=== PATIENT | male | born 1960 | race African-American/Black ===

== ENCOUNTER 2017-04-21 07:47 | Inpatient (IN) | payer SELFPAY ==
[~2017-04-21] VITALS: Ht 177.8 cm; Wt 83.0 kg
[~2017-04-21 07:47] MED LIST: AMIO200T2 PO; ASPI-482 PO; ATOR10TA PO; FURO-68 PO; ISOS60TA2 PO; LISI-338 PO; METO50TA6 PO
[2017-04-21] MEDS ORDERED: IPRATRPIUM/ALBUTEROL 0.5/2.5MG 3 ML NEBU. NEB ONE (08:15)
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
--- NOTE | 2017-04-21 08:36 | EKG ---
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
[2017-04-21 08:48] LABS: BASO # 0.1 x10^3/uL (0.0-0.2); BASO % 1 % (0-3); EOS % 2 % (0-3); HEMATOCRIT 40.4 % (39.0-53.0); HEMOGLOBIN 13.4 g/dL (13.0-17.5); LYMPH # 1.5 x10^3/uL (1.0-4.8); LYMPH % 33 % (24-48); MEAN CORPUSCULAR HEMOGLOBIN 27 pg (25-35); MEAN CORPUSCULAR HGB CONC 33 g/dL (31-37); MEAN CORPUSCULAR VOLUME 82 fL (79-100); MONO % 6 % (0-9); NEUT % 58 % (31-73); PLATELET COUNT 162 x10^3/uL (140-400); RED BLOOD COUNT 4.91 x10^6/uL (4.30-5.70); RED CELL DISTRIBUTION WIDTH 16.2 % (11.5-14.5); WHITE BLOOD COUNT 4.7 x10^3/uL (4.0-11.0)
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
[2017-04-21 09:01] LABS: BASE EXCESS COOX -5 mmol/L (-3-3); CARBON MONOXIDE 0.5 % (0.0-1.9); HCO3 COOX 18 mmol/L (21-28); METHEMOGLOBIN 0.4 % (0.0-1.9); OXYHEMOGLOBIN 92.7 %; PCO2 COOX 28 mmHg (35-46); PH COOX 7.43 (7.35-7.45); PO2 COOX 69 mmHg (65-108); SAT O2 COOX 94 % (92-99); TOTAL HEMOGLOBIN 13.5 g/dL
[2017-04-21 09:02] LABS: CALCIUM 8.6 mg/dL (8.5-10.1); CREATININE 1.8 mg/dL (0.7-1.3); POTASSIUM 4.8 mmol/L (3.5-5.1)
[2017-04-21 09:09] LABS: ALBUMIN 3.3 g/dL (3.4-5.0); ALBUMIN/GLOBULIN RATIO 0.8 (1.0-1.7); TOTAL BILIRUBIN 1.3 mg/dL (0.2-1.0); TOTAL PROTEIN 7.4 g/dL (6.4-8.2)
[2017-04-21 09:10] LABS: INR 1.3 (0.8-1.1); PROTHROMBIN TIME PATIENT 15.6 SEC (11.7-14.0)
[2017-04-21 09:11] LABS: FIO2 COOX 21
[2017-04-21 09:18] LABS: CKMB MASS 1.4 ng/mL (0.0-3.6)
[2017-04-21] MEDS ORDERED: FUROSEMIDE 40 MG/4 ML VIAL. IVP ONE (09:45)
[2017-04-21] MEDS ORDERED: ACETAMINOPHEN 325 MG TABLET. PO PRN (10:15)
[2017-04-21] MEDS ORDERED: ONDANSETRON PF 4 MG/2 ML VIAL. IV PRN ×2 (10:15→12:45)
[2017-04-21 11:12] LABS: BARBITURATES NEG (NEG); BENZODIAZEPINES NEG (NEG); CANNABINOIDS NEG (NEG); COCAINE NEG (NEG); METHADONE NEG (NEG); OPIATES NEG (NEG); PHENCYCLIDINE NEG (NEG)
[2017-04-21 11:15] LABS: BILIRUBIN,URINE NEGATIVE (NEG); GLUCOSE,URINE NEGATIVE (NEG); NITRITE,URINE NEGATIVE (NEG); PH,URINE 5.5; PROTEIN,URINE NEGATIVE (NEG-TRACE); UROBILINOGEN,URINE 0.2 mg/dL (0.2 mg/dL)
[2017-04-21 11:30] VITALS: BP 145/107
[2017-04-21 11:39] LABS: BACTERIA,URINE 0 /HPF (0-FEW); RBC,URINE 0 /HPF (0-2); SQUAMOUS EPITHELIAL CELL,UR FEW /LPF
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
--- NOTE | 2017-04-21 12:42 | PDOC1 ---
History and Physical Date of Admission Date of Admission DATE: 04/21/17 TIME: 12:35 Identification/Chief Complaint Chief Complaint soa, leg edema Problems: Source Source: Caregiver, Chart review, Patient History of Present Illness History of Present Illness 57 y.o AA male who is know to me when i dcd him for the ff: Date of Admission: Mar 22, 2017 Date of Discharge: Mar 29, 2017 Admitting Diagnosis Comment: 1. CVA: multiple subacute infarcts per MRI. neurology following 2. Acute on chronic systolic heart failure: LVEF 10-15%, appears better compensated. Continue current medical regimen 3. CAD/NSTEMI: Remains CP free, [facility] with 3VD CAD with LM involvement. CT surgery deemed patient a poor surgical candidate. Plan for high risk PCI/stent placement to left main coronary artery on Tuesday possibly with hemodynamic support from Impella percutaneous ventricular assist device. Telemetry showed few brief episodes of wide compensated tachycardia most probably atrial fibrillation with aberrancy. Continue amiodarone. 4. HTN: better controlled 5. COPD/severe pulmonary HTN/tobaccoism: Pulmonary team following 6. CKD3 NOw back bec of SOA, leg edema, marked, claims compliance with his meds and I do believe him as I inspected his used bottles, BNP 31K, CXR shows congestion, Leg visibly pitting edema, Got lasix 40 at ER with good UO. No CP, LAbs creat 1.8 Past Medical History Cardiovascular: CAD, CHF, HTN Pulmonary: Bronchitis, COPD Renal/: Chronic renal insuff Past Surgical History Past Surgical History: Other Family History Family History: Coronary Artery Disease, Stroke Social History Smoke: No ALCOHOL: none Drugs: Marijuana Current Problem List Problem List Problems Medical Problems: (1) CHF (congestive heart failure) Status: Acute (2) Elevated troponin Status: Acute Problems: Current Medications Current Medications Current Medications Albuterol/ Ipratropium (Duoneb) 3 ml 1X ONCE NEB Last administered on 08:56; Start 04/21/17 at 08:15; Stop 04/21/17 at 08:16; Status DC Furosemide (Lasix) 40 mg 1X ONCE IVP Last administered on 04/21/17 09:49; Start 04/21/17 at 09:45; Stop 04/21/17 at 09:46; Status DC Ondansetron HCl (Zofran) 4 mg PRN Q8HRS PRN IV NAUSEA/VOMITING; Start 04/21/17 at 10:15; Stop 04/22/17 at 10:14 Acetaminophen (Tylenol) 650 mg PRN Q4HRS PRN PO FEVER; Start 04/21/17 at 10:15 ; Stop 04/22/17 at 10:14 Furosemide (Lasix) 40 mg DAILY IVP ; Start 04/22/17 at 09:00 Active Scripts Active Metoprolol Tartrate 50 Mg Tablet 1 Tab PO BID Aspir 81 (Aspirin) 81 Mg Tablet.dr 1 Tab PO DAILY Lisinopril 5 Mg Tablet 1 Tab PO DAILY Amiodarone Hcl 200 Mg Tablet 1 Tab PO BID Lipitor (Atorvastatin Calcium) 10 Mg Tablet 1 Tab PO QHS Isosorbide Mononitrate Er (Isosorbide Mononitrate) 60 Mg Tab.er.24h 1 Tab PO DAILY Lasix (Furosemide) 40 Mg Tablet 1 Tab PO DAILY Allergies Allergies: Coded Allergies: codeine (Verified Allergy, Intermediate, 04/21/17) ROS Review of System leg edema, SOA, all else is neg, denies orthopnea or pND Physical Exam General: Alert, Oriented X3, Cooperative, No acute distress HEENT: Atraumatic, PERRLA Lungs: Normal air movement, Other (dec BS bases, no wheezes) Cardiovascular: S1, S2 Abdomen: Normal bowel sounds, Soft, No tenderness, No hepatosplenomegaly, No masses Male Genitals Exam: normal genitalia, normal prostate Rectal Exam: not examined PELVIC: Nml ext genitalia Extremities: Other (plus 2 pitting edema) Skin: No rashes, No breakdown, No significant lesion Neuro: Normal gait, Normal speech, Strength at 5/5 X4 ext, Normal tone, Sensation intact, Cranial nerves 3-12 NL, Reflexes 2+ Vitals Vitals Vital Signs Date Time Temp Pulse Resp B/P (MAP) Pulse Ox O2 Delivery O2 Flow Rate FiO2 04/21/17 11:54 Room Air 04/21/17 11:30 97.5 70 19 145/107 (120) 100 97.5 Labs Labs Laboratory Tests Test 04/21/17 08:09 04/21/17 08:30 04/21/17 10:50 04/21/17 11:15 O2 Saturation 94 % (92-99) Arterial Blood pH 7.43 (7.35-7.45) Arterial Blood pCO2 at Patient Temp 28 mmHg (35-46) Arterial Blood pO2 at Patient Temp 69 mmHg (65-108) Arterial Blood HCO3 18 mmol/L (21-28) Arterial Blood Base Excess -5 mmol/L (-3-3) Oxyhemoglobin 92.7 % Methemoglobin 0.4 % (0.0-1.9) Carbon Monoxide, Quantitative 0.5 % (0.0-1.9) FiO2 21 White Blood Count 4.7 x10^3/uL (4.0-11.0) Red Blood Count 4.91 x10^6/uL (4.30-5.70) Hemoglobin 13.4 g/dL (13.0-17.5) Hematocrit 40.4 % (39.0-53.0) Mean Corpuscular Volume 82 fL (79-100) Mean Corpuscular Hemoglobin 27 pg (25-35) Mean Corpuscular Hemoglobin Concent 33 g/dL (31-37) Red Cell Distribution Width 16.2 % (11.5-14.5) Platelet Count 162 x10^3/uL (140-400) Neutrophils (%) (Auto) 58 % (31-73) Lymphocytes (%) (Auto) 33 % (24-48) Monocytes (%) (Auto) 6 % (0-9) Eosinophils (%) (Auto) 2 % (0-3) Basophils (%) (Auto) 1 % (0-3) Neutrophils # (Auto) 2.7 x10^3uL (1.8-7.7) Lymphocytes # (Auto) 1.5 x10^3/uL (1.0-4.8) Monocytes # (Auto) 0.3 x10^3/uL (0.0-1.1) Eosinophils # (Auto) 0.1 x10^3/uL (0.0-0.7) Basophils # (Auto) 0.1 x10^3/uL (0.0-0.2) Prothrombin Time 15.6 SEC (11.7-14.0) Prothromb Time International Ratio 1.3 (0.8-1.1) D-Dimer (Myla) 4.80 ug/mlFEU (0.00-0.50) Sodium Level 142 mmol/L (136-145) Potassium Level 4.8 mmol/L (3.5-5.1) Chloride Level 108 mmol/L (98-107) Carbon Dioxide Level 23 mmol/L (21-32) Anion Gap 11 (6-14) Blood Urea Nitrogen 32 mg/dL (8-26) Creatinine 1.8 mg/dL (0.7-1.3) Estimated GFR (Cockcroft-Gault) 47.0 BUN/Creatinine Ratio 18 (6-20) Glucose Level 100 mg/dL (70-99) Lactic Acid Level 2.9 mmol/L (0.4-2.0) Calcium Level 8.6 mg/dL (8.5-10.1) Magnesium Level 2.0 mg/dL (1.8-2.4) Total Bilirubin 1.3 mg/dL (0.2-1.0) Aspartate Amino Transf (AST/SGOT) 50 U/L (15-37) Alanine Aminotransferase (ALT/SGPT) 93 U/L (16-63) Alkaline Phosphatase 117 U/L (46-116) Creatine Kinase 93 U/L (39-308) Creatine Kinase MB (Mass) 1.4 ng/mL (0.0-3.6) Creatine Kinase MB Relative Index 1.5 % (0-4) Troponin I Quantitative 0.164 ng/mL (0.000-0.055) 0.157 ng/mL (0.000-0.055) AX-Jkd-A-Type Natriuretic Peptide 52919 pg/mL (0-124) Total Protein 7.4 g/dL (6.4-8.2) Albumin 3.3 g/dL (3.4-5.0) Albumin/Globulin Ratio 0.8 (1.0-1.7) Lipase 203 U/L (73-393) Thyroid Stimulating Hormone (TSH) 7.283 uIU/mL (0.358-3.74) Ethyl Alcohol Level < 10 mg/dL (0-10) Urine Collection Type Unknown Urine Color Yellow Urine Clarity Clear Urine pH 5.5 Urine Specific [place] 1.010 Urine Protein Negative mg/dL (NEG-TRACE) Urine Glucose (UA) Negative mg/dL (NEG) Urine Ketones (Stick) Negative mg/dL (NEG) Urine Blood Negative (NEG) Urine Nitrite Negative (NEG) Urine Bilirubin Negative (NEG) Urine Urobilinogen Dipstick 0.2 mg/dL (0.2 mg/dL) Urine Leukocyte Esterase Negative (NEG) Urine RBC 0 /HPF (0-2) Urine WBC 1-4 /HPF (0-4) Urine Squamous Epithelial Cells Few /LPF Urine Bacteria 0 /HPF (0-FEW) Urine Hyaline Casts Occasional /HPF Urine Opiates Screen Neg (NEG) Urine Methadone Screen Neg (NEG) Urine Barbiturates Neg (NEG) Urine Phencyclidine Screen Neg (NEG) Urine Amphetamine/Methamphetamine Neg (NEG) Urine Benzodiazepines Screen Neg (NEG) Urine Cocaine Screen Neg (NEG) Urine Cannabinoids Screen Neg (NEG) Urine Ethyl Alcohol Neg (NEG) Laboratory Tests Test 04/21/17 08:09 04/21/17 08:30 04/21/17 10:50 04/21/17 11:15 O2 Saturation 94 % (92-99) Arterial Blood pH 7.43 (7.35-7.45) Arterial Blood pCO2 at Patient Temp 28 mmHg (35-46) Arterial Blood pO2 at Patient Temp 69 mmHg (65-108) Arterial Blood HCO3 18 mmol/L (21-28) Arterial Blood Base Excess -5 mmol/L (-3-3) Oxyhemoglobin 92.7 % Methemoglobin 0.4 % (0.0-1.9) Carbon Monoxide, Quantitative 0.5 % (0.0-1.9) FiO2 21 White Blood Count 4.7 x10^3/uL (4.0-11.0) Red Blood Count 4.91 x10^6/uL (4.30-5.70) Hemoglobin 13.4 g/dL (13.0-17.5) Hematocrit 40.4 % (39.0-53.0) Mean Corpuscular Volume 82 fL (79-100) Mean Corpuscular Hemoglobin 27 pg (25-35) Mean Corpuscular Hemoglobin Concent 33 g/dL (31-37) Red Cell Distribution Width 16.2 % (11.5-14.5) Platelet Count 162 x10^3/uL (140-400) Neutrophils (%) (Auto) 58 % (31-73) Lymphocytes (%) (Auto) 33 % (24-48) Monocytes (%) (Auto) 6 % (0-9) Eosinophils (%) (Auto) 2 % (0-3) Basophils (%) (Auto) 1 % (0-3) Neutrophils # (Auto) 2.7 x10^3uL (1.8-7.7) Lymphocytes # (Auto) 1.5 x10^3/uL (1.0-4.8) Monocytes # (Auto) 0.3 x10^3/uL (0.0-1.1) Eosinophils # (Auto) 0.1 x10^3/uL (0.0-0.7) Basophils # (Auto) 0.1 x10^3/uL (0.0-0.2) Prothrombin Time 15.6 SEC (11.7-14.0) Prothromb Time International Ratio 1.3 (0.8-1.1) D-Dimer (Myla) 4.80 ug/mlFEU (0.00-0.50) Sodium Level 142 mmol/L (136-145) Potassium Level 4.8 mmol/L (3.5-5.1) Chloride Level 108 mmol/L (98-107) Carbon Dioxide Level 23 mmol/L (21-32) Anion Gap 11 (6-14) Blood Urea Nitrogen 32 mg/dL (8-26) Creatinine 1.8 mg/dL (0.7-1.3) Estimated GFR (Cockcroft-Gault) 47.0 BUN/Creatinine Ratio 18 (6-20) Glucose Level 100 mg/dL (70-99) Lactic Acid Level 2.9 mmol/L (0.4-2.0) Calcium Level 8.6 mg/dL (8.5-10.1) Magnesium Level 2.0 mg/dL (1.8-2.4) Total Bilirubin 1.3 mg/dL (0.2-1.0) Aspartate Amino Transf (AST/SGOT) 50 U/L (15-37) Alanine Aminotransferase (ALT/SGPT) 93 U/L (16-63) Alkaline Phosphatase 117 U/L (46-116) Creatine Kinase 93 U/L (39-308) Creatine Kinase MB (Mass) 1.4 ng/mL (0.0-3.6) Creatine Kinase MB Relative Index 1.5 % (0-4) Troponin I Quantitative 0.164 ng/mL (0.000-0.055) 0.157 ng/mL (0.000-0.055) IZ-Tzf-O-Type Natriuretic Peptide 10563 pg/mL (0-124) Total Protein 7.4 g/dL (6.4-8.2) Albumin 3.3 g/dL (3.4-5.0) Albumin/Globulin Ratio 0.8 (1.0-1.7) Lipase 203 U/L (73-393) Thyroid Stimulating Hormone (TSH) 7.283 uIU/mL (0.358-3.74) Ethyl Alcohol Level < 10 mg/dL (0-10) Urine Collection Type Unknown Urine Color Yellow Urine Clarity Clear Urine pH 5.5 Urine Specific [place] 1.010 Urine Protein Negative mg/dL (NEG-TRACE) Urine Glucose (UA) Negative mg/dL (NEG) Urine Ketones (Stick) Negative mg/dL (NEG) Urine Blood Negative (NEG) Urine Nitrite Negative (NEG) Urine Bilirubin Negative (NEG) Urine Urobilinogen Dipstick 0.2 mg/dL (0.2 mg/dL) Urine Leukocyte Esterase Negative (NEG) Urine RBC 0 /HPF (0-2) Urine WBC 1-4 /HPF (0-4) Urine Squamous Epithelial Cells Few /LPF Urine Bacteria 0 /HPF (0-FEW) Urine Hyaline Casts Occasional /HPF Urine Opiates Screen Neg (NEG) Urine Methadone Screen Neg (NEG) Urine Barbiturates Neg (NEG) Urine Phencyclidine Screen Neg (NEG) Urine Amphetamine/Methamphetamine Neg (NEG) Urine Benzodiazepines Screen Neg (NEG) Urine Cocaine Screen Neg (NEG) Urine Cannabinoids Screen Neg (NEG) Urine Ethyl Alcohol Neg (NEG) VTE Prophylaxis Ordered VTE Prophylaxis Devices: Yes VTE Pharmacological Prophylaxi: Yes Assessment/Plan Assessment/Plan 1. CHF exacerbation 2. Leg edema from CHF 3. CVA: multiple subacute infarcts per MRI. neurology following 4. Acute on chronic systolic heart failure: LVEF 10-15%, in February 2017 5. CAD/NSTEMI: 6 HTN: 7. COPD/severe pulmonary HTN/tobaccoism: 8. CKD3 PLAN: Admit 2 MN Diurese Watch lytes while diuresing Resume home meds PT/OT Cards consult Claims compliance - salt intake? he could not answer me straight. INc lasix dose might need to WOF further rise creat - has CKD stage 3 Seen at BARBARA CARROLL MD Apr 21, 2017 12:42
[2017-04-21] MEDS: ISOSORBIDE MONONITRATE ER 30 MG TAB.ER.24H PO SCH (14:01)
[2017-04-21] MEDS: LISINOPRIL 5 MG TABLET. PO SCH (14:01)
[2017-04-21] MEDS: ASPIRIN ENTERIC COATED 81 MG TABLET.DR. PO SCH (14:01)
[2017-04-21 15:00] VITALS: BP 139/93
[2017-04-21 19:48] VITALS: BP 155/97
[2017-04-21] MEDS: ATORVASTATIN CALCIUM 10 MG TABLET. PO SCH (20:45)
[2017-04-21] MEDS: METOPROLOL TART IMMED RELEASE 50 MG TABLET. PO SCH (20:45)
[2017-04-21] MEDS: AMIODARONE HCL 200 MG TABLET. PO SCH (20:46)
[2017-04-21 22:39] VITALS: BP 132/98
--- NOTE | 2017-04-21 22:47 | RAD ---
INDICATION: Short of air for one day. Heart failure. Lower extremity edema. TECHNIQUE: Ventilation imaging utilized 18.0 mCi xenon-133 inhaled. Perfusion imaging utilized 6.6 mCi technetium 99m labeled MAA IV. Chest radiograph from the same day is available for comparison. This study was not marked as a stat exam, resulting in a delay in turn around. FINDINGS: There is homogeneous uptake of radiotracer on ventilation imaging with some retention on washout phase. No matched or mismatched defect on perfusion imaging is identified. IMPRESSION: 1. Low probability for pulmonary embolism. 2. Air trapping. Electronically signed by: Kobe Douglass MD (04/21/2017 10:43 PM) [facility]
[2017-04-22 03:26] VITALS: BP 131/96
[2017-04-22 05:27] LABS: BASO % 1 % (0-3); EOS % 1 % (0-3); HEMATOCRIT 37.6 % (39.0-53.0); HEMOGLOBIN 12.3 g/dL (13.0-17.5); LYMPH # 1.6 x10^3/uL (1.0-4.8); LYMPH % 35 % (24-48); MEAN CORPUSCULAR HEMOGLOBIN 27 pg (25-35); MEAN CORPUSCULAR HGB CONC 33 g/dL (31-37); MEAN CORPUSCULAR VOLUME 83 fL (79-100); MONO % 7 % (0-9); NEUT % 56 % (31-73); PLATELET COUNT 148 x10^3/uL (140-400); RED BLOOD COUNT 4.55 x10^6/uL (4.30-5.70); RED CELL DISTRIBUTION WIDTH 15.7 % (11.5-14.5); WHITE BLOOD COUNT 4.6 x10^3/uL (4.0-11.0)
[2017-04-22 05:46] LABS: CALCIUM 8.8 mg/dL (8.5-10.1); CREATININE 1.4 mg/dL (0.7-1.3); GFR 62.8
[2017-04-22 07:00] VITALS: BP 136/89
[2017-04-22] MEDS: ISOSORBIDE MONONITRATE ER 30 MG TAB.ER.24H PO SCH (08:57)
[2017-04-22] MEDS: ASPIRIN ENTERIC COATED 81 MG TABLET.DR. PO SCH (08:58)
[2017-04-22] MEDS: METOPROLOL TART IMMED RELEASE 50 MG TABLET. PO SCH ×2 (08:58→20:01)
[2017-04-22] MEDS: AMIODARONE HCL 200 MG TABLET. PO SCH ×2 (08:58→20:01)
[2017-04-22] MEDS: LISINOPRIL 5 MG TABLET. PO SCH (08:58)
[2017-04-22] MEDS: FUROSEMIDE 40 MG/4 ML VIAL. IVP SCH (08:59)
[2017-04-22 11:00] VITALS: BP 127/92
--- NOTE | 2017-04-22 11:17 | PDOC ---
PROGRESS NOTES Chief Complaint Chief Complaint Acute hypoxic respir failure ASSESSMENT AND PLAN: 1. CHF exacerbation: recent echo (02/2017) with EF 10-15%. responding to IV lasix. cont home meds 2. CAD: no CP this admit. recent cath with 3VD CAD with LM involvement. D/w cardiology: medical management for now; not a surgical candidate, stent high risk at this time. 4. HTN: better controlled 5. COPD/severe pulmonary HTN/tobaccoism: no acute issues. nebs, suppl O2 6. CKD2/3: creat improved, lytes stable. cont to monitor with ongoing IV lasix 7. CVA hx 8. Nutrition: consult for sodium low diet History of Present Illness History of Present Illness feels fine this AM. respir issues resolved Vitals Vitals Vital Signs Date Time Temp Pulse Resp B/P (MAP) Pulse Ox O2 Delivery O2 Flow Rate FiO2 04/22/17 08:58 68 136/89 04/22/17 07:00 98.4 19 100 Room Air 98.4 Physical Exam General: Alert, Oriented X3, Cooperative Heart: Regular rate, Normal S1, Normal S2, Other Lungs: Clear Abdomen: Soft, No tenderness Extremities: Other (1+ pitting edema) Skin: No breakdown, No significant lesion Labs LABS Laboratory Tests Test 04/21/17 11:15 04/21/17 12:05 04/21/17 16:07 04/21/17 21:10 Troponin I Quantitative 0.157 ng/mL (0.000-0.055) 0.172 ng/mL (0.000-0.055) 0.150 ng/mL (0.000-0.055) Lactic Acid Level 2.4 mmol/L (0.4-2.0) Test 04/22/17 03:30 White Blood Count 4.6 x10^3/uL (4.0-11.0) Red Blood Count 4.55 x10^6/uL (4.30-5.70) Hemoglobin 12.3 g/dL (13.0-17.5) Hematocrit 37.6 % (39.0-53.0) Mean Corpuscular Volume 83 fL (79-100) Mean Corpuscular Hemoglobin 27 pg (25-35) Mean Corpuscular Hemoglobin Concent 33 g/dL (31-37) Red Cell Distribution Width 15.7 % (11.5-14.5) Platelet Count 148 x10^3/uL (140-400) Neutrophils (%) (Auto) 56 % (31-73) Lymphocytes (%) (Auto) 35 % (24-48) Monocytes (%) (Auto) 7 % (0-9) Eosinophils (%) (Auto) 1 % (0-3) Basophils (%) (Auto) 1 % (0-3) Neutrophils # (Auto) 2.6 x10^3uL (1.8-7.7) Lymphocytes # (Auto) 1.6 x10^3/uL (1.0-4.8) Monocytes # (Auto) 0.3 x10^3/uL (0.0-1.1) Eosinophils # (Auto) 0.1 x10^3/uL (0.0-0.7) Basophils # (Auto) 0.0 x10^3/uL (0.0-0.2) Sodium Level 142 mmol/L (136-145) Potassium Level 4.0 mmol/L (3.5-5.1) Chloride Level 106 mmol/L (98-107) Carbon Dioxide Level 23 mmol/L (21-32) Anion Gap 13 (6-14) Blood Urea Nitrogen 30 mg/dL (8-26) Creatinine 1.4 mg/dL (0.7-1.3) Estimated GFR (Cockcroft-Gault) 62.8 Glucose Level 114 mg/dL (70-99) Calcium Level 8.8 mg/dL (8.5-10.1) JEANETTE ADAM MD Apr 22, 2017 11:17
--- NOTE | 2017-04-22 11:55 | PDOC ---
JOE GARCIA MACHINE COMPOSITOR 04/22/17 1155: CARDIO Progress Notes Date and Time Date of Service 04/22/17 Time of Evaluation 1020 Subjective Subjective: No Chest Pain, No Palpitations, Other (SOA improved but persists) Vitals Vitals Vital Signs Date Time Temp Pulse Resp B/P (MAP) Pulse Ox O2 Delivery O2 Flow Rate FiO2 04/22/17 08:58 68 136/89 04/22/17 07:00 98.4 19 100 Room Air 98.4 Weight Weight [ ] Laboratory Labs Laboratory Tests Test 04/21/17 12:05 04/21/17 16:07 04/21/17 21:10 04/22/17 03:30 Lactic Acid Level 2.4 mmol/L (0.4-2.0) Troponin I Quantitative 0.172 ng/mL (0.000-0.055) 0.150 ng/mL (0.000-0.055) White Blood Count 4.6 x10^3/uL (4.0-11.0) Red Blood Count 4.55 x10^6/uL (4.30-5.70) Hemoglobin 12.3 g/dL (13.0-17.5) Hematocrit 37.6 % (39.0-53.0) Mean Corpuscular Volume 83 fL (79-100) Mean Corpuscular Hemoglobin 27 pg (25-35) Mean Corpuscular Hemoglobin Concent 33 g/dL (31-37) Red Cell Distribution Width 15.7 % (11.5-14.5) Platelet Count 148 x10^3/uL (140-400) Neutrophils (%) (Auto) 56 % (31-73) Lymphocytes (%) (Auto) 35 % (24-48) Monocytes (%) (Auto) 7 % (0-9) Eosinophils (%) (Auto) 1 % (0-3) Basophils (%) (Auto) 1 % (0-3) Neutrophils # (Auto) 2.6 x10^3uL (1.8-7.7) Lymphocytes # (Auto) 1.6 x10^3/uL (1.0-4.8) Monocytes # (Auto) 0.3 x10^3/uL (0.0-1.1) Eosinophils # (Auto) 0.1 x10^3/uL (0.0-0.7) Basophils # (Auto) 0.0 x10^3/uL (0.0-0.2) Sodium Level 142 mmol/L (136-145) Potassium Level 4.0 mmol/L (3.5-5.1) Chloride Level 106 mmol/L (98-107) Carbon Dioxide Level 23 mmol/L (21-32) Anion Gap 13 (6-14) Blood Urea Nitrogen 30 mg/dL (8-26) Creatinine 1.4 mg/dL (0.7-1.3) Estimated GFR (Cockcroft-Gault) 62.8 Glucose Level 114 mg/dL (70-99) Calcium Level 8.8 mg/dL (8.5-10.1) Microbiology Micro Microbiology 04/21/17 Blood Culture - Preliminary, Resulted NO GROWTH AFTER 1 DAY Physical Exam HEENT: Neck Supple W Full Motion Chest: Symmetric LUNGS: Other (bibasilar crackles) Heart: S1S2, RRR, murmurs (2/6 systolic murmur ) Abdomen: Soft N/T Extremities: Other (2+ bilateral LE edema ) Neurology: alert, oriented, follow commands Assessment Assessment 1. Acute on chronic systolic heart failure with ICM; LVEF 10-15%. 2. CAD; 3VD with L main involvement 3. Hypertension 4. COPD/ severe pulmonary hypertension 5. MARILYN on CKD 6. Recent CVA 7. H/o NSVT on Amiodarone therapy. Recommendations Continue diuresis with monitoring of renal function Consult social work to determine status of disability application 2 Gm NA diet. Keep I < O Reinforced importance of dietary compliance. Continue medical therapy/conservative management. Consider PCI of L main on an outpatient basis JADE WATSON MD 04/22/17 1708: CARDIO Progress Notes Plan Plan Pt. seen and examined. Agree with above [employer] INS[employer]OR [employer] TESTER note. Supportive care for now with changes as noted above. If he has symptoms despite medical therapy, could consider LM intervention. JOE GARCIA APRN Apr 22, 2017 11:55 JADE WATSON MD Apr 22, 2017 17:08
[2017-04-22] MEDS: IPRATRPIUM/ALBUTEROL 0.5/2.5MG 3 ML NEBU. NEB SCH ×3 (12:00→19:49)
--- NOTE | 2017-04-22 14:52 | EKG ---
[facility] [address] [place] [address] Test Date: 2017-04-22 Test Time: 14:45:44 Pat Name: ABUNDIO ALLEN Department: Room: 256 1 Gender: M Lacquerer: AT : 1960 Requested By: BRENDA HOWELL Order Number: [id number] Reading MD: Stevan John Measurements Intervals [place] Rate: 56 P: 45 ND: 166 QRS: -15 QRSD: 120 T: 156 QT: 486 QTc: 472 Interpretive Statements SINUS RHYTHM VENTRICULAR PREMATURE COMPLEX(ES) LEFT ATRIAL ABNORMALITY LEFTWARD AXIS QRS(T) CONTOUR ABNORMALITY CONSISTENT WITH ANTERIOR INFARCT PROBABLY OLD CONSIDER INFERIOR MYOCARDIAL DAMAGE T ABNORMALITY IN HIGH LATERAL LEADS ABNORMAL ECG RI6.01 Electronically Signed On 05-11-2017 10:35:25 CDT by Stevan John
[2017-04-22 15:00] VITALS: BP 127/96
[2017-04-22 19:30] VITALS: BP 136/88
[2017-04-22] MEDS: ATORVASTATIN CALCIUM 10 MG TABLET. PO SCH (20:01)
[2017-04-22 23:15] VITALS: BP 123/90
[2017-04-23 03:20] VITALS: BP 124/86
[2017-04-23 05:48] LABS: BASO # 0.1 x10^3/uL (0.0-0.2); BASO % 1 % (0-3); EOS % 2 % (0-3); HEMOGLOBIN 12.2 g/dL (13.0-17.5); LYMPH # 1.8 x10^3/uL (1.0-4.8); LYMPH % 37 % (24-48); MEAN CORPUSCULAR HEMOGLOBIN 27 pg (25-35); MEAN CORPUSCULAR HGB CONC 32 g/dL (31-37); MEAN CORPUSCULAR VOLUME 83 fL (79-100); MONO % 7 % (0-9); NEUT % 52 % (31-73); PLATELET COUNT 135 x10^3/uL (140-400); RED BLOOD COUNT 4.58 x10^6/uL (4.30-5.70); RED CELL DISTRIBUTION WIDTH 15.7 % (11.5-14.5); WHITE BLOOD COUNT 4.9 x10^3/uL (4.0-11.0)
[2017-04-23 06:13] LABS: ALBUMIN 2.9 g/dL (3.4-5.0); ALBUMIN/GLOBULIN RATIO 0.8 (1.0-1.7); CALCIUM 8.5 mg/dL (8.5-10.1); CREATININE 1.6 mg/dL (0.7-1.3); GFR 53.8; POTASSIUM 4.5 mmol/L (3.5-5.1); TOTAL BILIRUBIN 1.4 mg/dL (0.2-1.0); TOTAL PROTEIN 6.6 g/dL (6.4-8.2)
[2017-04-23 07:00] VITALS: BP 136/101
[2017-04-23] MEDS: IPRATRPIUM/ALBUTEROL 0.5/2.5MG 3 ML NEBU. NEB SCH ×4 (07:12→19:47)
[2017-04-23] MEDS: FUROSEMIDE 40 MG/4 ML VIAL. IVP SCH ×2 (08:34→20:07)
[2017-04-23] MEDS: ISOSORBIDE MONONITRATE ER 30 MG TAB.ER.24H PO SCH ×2 (08:35→09:00)
[2017-04-23] MEDS: ASPIRIN ENTERIC COATED 81 MG TABLET.DR. PO SCH (08:35)
[2017-04-23] MEDS: AMIODARONE HCL 200 MG TABLET. PO SCH (08:35)
[2017-04-23] MEDS: LISINOPRIL 5 MG TABLET. PO SCH (08:36)
[2017-04-23] MEDS: METOPROLOL TART IMMED RELEASE 50 MG TABLET. PO SCH ×2 (08:36→20:07)
--- NOTE | 2017-04-23 09:18 | PDOC ---
CARDIOLOGY PROGRESS NOTE SUBJECTIVE: No chest pain or dyspnea. Reports LE swelling is improved. OBJECTIVE: Vital SIgns: Vital Signs Date Time Temp Pulse Resp B/P (MAP) Pulse Ox O2 Delivery O2 Flow Rate FiO2 04/23/17 08:36 74 136/101 04/23/17 07:13 100 Room Air 04/23/17 07:00 97.3 97.3 04/23/17 03:20 22 I & O Even Objective: GEN.: No apparent distress. Alert and oriented. HEENT: Head is normocephalic, atraumatic NECK: Supple. LUNGS: Clear to auscultation. HEART: RRR, S1, S2 present. Peripheral pulses intact ABDOMEN: Soft, nontender. Positive bowel sounds. EXTREMITIES: Without any cyanosis. 2+ pitting edema up to knee. NEUROLOGIC: Normal speech, normal tone PSYCHIATRIC: flat affect, normal mood. SKIN: No ulcerations CURRENT MEDICATIONS: Meds changed. See orders ASSESSMENT: 1. Mixed ischemic and NICM 2. Acute on chronic systolic heart failure. Problems: PLAN: 1. Plan to increase rose-inh, decrease imdur, amiodarone 2. increase lasix to 40mg bid ivp. 3. strict I/O's, daily standing weights. Likely needs another 48 hours in the hospital, otherwise will be at high risk for bounce back admission. Thanks will follow. JADE WATSON MD Apr 23, 2017 09:18
[2017-04-23] MEDS ORDERED: AMIODARONE HCL 200 MG TABLET. PO SCH (09:30)
[2017-04-23 11:00] VITALS: BP 129/88
--- NOTE | 2017-04-23 12:24 | PDOC ---
PROGRESS NOTES Chief Complaint Chief Complaint 1. CHF exacerbation 2. Leg edema from CHF 3. CVA: multiple subacute infarcts per MRI. neurology following 4. Acute on chronic systolic heart failure: LVEF 10-15%, in February 2017 5. CAD/NSTEMI: 6 HTN: 7. COPD/severe pulmonary HTN/tobaccoism: 8. CKD3 History of Present Illness History of Present Illness Leg swelling better NO SOA Asks about if he will get the PCI in this current admission REad cards notes- advise cont iV lasix 40 BID and keep as readmit rate for him is high K 4.5 Creat ok PLAN: LAbs akil while on diuresis Replace K if gets low Pt./OT Supprotive meds Vitals Vitals Vital Signs Date Time Temp Pulse Resp B/P (MAP) Pulse Ox O2 Delivery O2 Flow Rate FiO2 04/23/17 11:56 Room Air 04/23/17 11:00 97.3 56 24 129/88 (102) 100 97.3 Physical Exam General: Alert, Oriented X3, Cooperative Heart: Regular rate, Normal S1, Normal S2, Other Lungs: Clear Abdomen: Soft, No tenderness Extremities: Other (1+ pitting edema) Skin: No breakdown, No significant lesion Labs LABS Laboratory Tests Test 04/23/17 04:30 White Blood Count 4.9 x10^3/uL (4.0-11.0) Red Blood Count 4.58 x10^6/uL (4.30-5.70) Hemoglobin 12.2 g/dL (13.0-17.5) Hematocrit 38.0 % (39.0-53.0) Mean Corpuscular Volume 83 fL (79-100) Mean Corpuscular Hemoglobin 27 pg (25-35) Mean Corpuscular Hemoglobin Concent 32 g/dL (31-37) Red Cell Distribution Width 15.7 % (11.5-14.5) Platelet Count 135 x10^3/uL (140-400) Neutrophils (%) (Auto) 52 % (31-73) Lymphocytes (%) (Auto) 37 % (24-48) Monocytes (%) (Auto) 7 % (0-9) Eosinophils (%) (Auto) 2 % (0-3) Basophils (%) (Auto) 1 % (0-3) Neutrophils # (Auto) 2.6 x10^3uL (1.8-7.7) Lymphocytes # (Auto) 1.8 x10^3/uL (1.0-4.8) Monocytes # (Auto) 0.3 x10^3/uL (0.0-1.1) Eosinophils # (Auto) 0.1 x10^3/uL (0.0-0.7) Basophils # (Auto) 0.1 x10^3/uL (0.0-0.2) Sodium Level 139 mmol/L (136-145) Potassium Level 4.5 mmol/L (3.5-5.1) Chloride Level 106 mmol/L (98-107) Carbon Dioxide Level 23 mmol/L (21-32) Anion Gap 10 (6-14) Blood Urea Nitrogen 35 mg/dL (8-26) Creatinine 1.6 mg/dL (0.7-1.3) Estimated GFR (Cockcroft-Gault) 53.8 BUN/Creatinine Ratio 22 (6-20) Glucose Level 100 mg/dL (70-99) Calcium Level 8.5 mg/dL (8.5-10.1) Magnesium Level 2.0 mg/dL (1.8-2.4) Total Bilirubin 1.4 mg/dL (0.2-1.0) Aspartate Amino Transf (AST/SGOT) 102 U/L (15-37) Alanine Aminotransferase (ALT/SGPT) 183 U/L (16-63) Alkaline Phosphatase 102 U/L (46-116) Total Protein 6.6 g/dL (6.4-8.2) Albumin 2.9 g/dL (3.4-5.0) Albumin/Globulin Ratio 0.8 (1.0-1.7) Review of Systems Review of Systems no inc in soa Assessment and Plan Assessmemt and Plan Problems Medical Problems: (1) Acute renal failure Status: Acute (2) CHF (congestive heart failure) Status: Acute (3) Elevated troponin Status: Acute Problems: Comment Review of Relevant I have reviewed the following items martin (where applicable) has been applied. Labs Laboratory Tests Test 04/21/17 16:07 04/21/17 21:10 04/22/17 03:30 04/23/17 04:30 Troponin I Quantitative 0.172 ng/mL (0.000-0.055) 0.150 ng/mL (0.000-0.055) White Blood Count 4.6 x10^3/uL (4.0-11.0) 4.9 x10^3/uL (4.0-11.0) Red Blood Count 4.55 x10^6/uL (4.30-5.70) 4.58 x10^6/uL (4.30-5.70) Hemoglobin 12.3 g/dL (13.0-17.5) 12.2 g/dL (13.0-17.5) Hematocrit 37.6 % (39.0-53.0) 38.0 % (39.0-53.0) Mean Corpuscular Volume 83 fL (79-100) 83 fL (79-100) Mean Corpuscular Hemoglobin 27 pg (25-35) 27 pg (25-35) Mean Corpuscular Hemoglobin Concent 33 g/dL (31-37) 32 g/dL (31-37) Red Cell Distribution Width 15.7 % (11.5-14.5) 15.7 % (11.5-14.5) Platelet Count 148 x10^3/uL (140-400) 135 x10^3/uL (140-400) Neutrophils (%) (Auto) 56 % (31-73) 52 % (31-73) Lymphocytes (%) (Auto) 35 % (24-48) 37 % (24-48) Monocytes (%) (Auto) 7 % (0-9) 7 % (0-9) Eosinophils (%) (Auto) 1 % (0-3) 2 % (0-3) Basophils (%) (Auto) 1 % (0-3) 1 % (0-3) Neutrophils # (Auto) 2.6 x10^3uL (1.8-7.7) 2.6 x10^3uL (1.8-7.7) Lymphocytes # (Auto) 1.6 x10^3/uL (1.0-4.8) 1.8 x10^3/uL (1.0-4.8) Monocytes # (Auto) 0.3 x10^3/uL (0.0-1.1) 0.3 x10^3/uL (0.0-1.1) Eosinophils # (Auto) 0.1 x10^3/uL (0.0-0.7) 0.1 x10^3/uL (0.0-0.7) Basophils # (Auto) 0.0 x10^3/uL (0.0-0.2) 0.1 x10^3/uL (0.0-0.2) Sodium Level 142 mmol/L (136-145) 139 mmol/L (136-145) Potassium Level 4.0 mmol/L (3.5-5.1) 4.5 mmol/L (3.5-5.1) Chloride Level 106 mmol/L (98-107) 106 mmol/L (98-107) Carbon Dioxide Level 23 mmol/L (21-32) 23 mmol/L (21-32) Anion Gap 13 (6-14) 10 (6-14) Blood Urea Nitrogen 30 mg/dL (8-26) 35 mg/dL (8-26) Creatinine 1.4 mg/dL (0.7-1.3) 1.6 mg/dL (0.7-1.3) Estimated GFR (Cockcroft-Gault) 62.8 53.8 Glucose Level 114 mg/dL (70-99) 100 mg/dL (70-99) Calcium Level 8.8 mg/dL (8.5-10.1) 8.5 mg/dL (8.5-10.1) BUN/Creatinine Ratio 22 (6-20) Magnesium Level 2.0 mg/dL (1.8-2.4) Total Bilirubin 1.4 mg/dL (0.2-1.0) Aspartate Amino Transf (AST/SGOT) 102 U/L (15-37) Alanine Aminotransferase (ALT/SGPT) 183 U/L (16-63) Alkaline Phosphatase 102 U/L (46-116) Total Protein 6.6 g/dL (6.4-8.2) Albumin 2.9 g/dL (3.4-5.0) Albumin/Globulin Ratio 0.8 (1.0-1.7) Laboratory Tests Test 04/23/17 04:30 White Blood Count 4.9 x10^3/uL (4.0-11.0) Red Blood Count 4.58 x10^6/uL (4.30-5.70) Hemoglobin 12.2 g/dL (13.0-17.5) Hematocrit 38.0 % (39.0-53.0) Mean Corpuscular Volume 83 fL (79-100) Mean Corpuscular Hemoglobin 27 pg (25-35) Mean Corpuscular Hemoglobin Concent 32 g/dL (31-37) Red Cell Distribution Width 15.7 % (11.5-14.5) Platelet Count 135 x10^3/uL (140-400) Neutrophils (%) (Auto) 52 % (31-73) Lymphocytes (%) (Auto) 37 % (24-48) Monocytes (%) (Auto) 7 % (0-9) Eosinophils (%) (Auto) 2 % (0-3) Basophils (%) (Auto) 1 % (0-3) Neutrophils # (Auto) 2.6 x10^3uL (1.8-7.7) Lymphocytes # (Auto) 1.8 x10^3/uL (1.0-4.8) Monocytes # (Auto) 0.3 x10^3/uL (0.0-1.1) Eosinophils # (Auto) 0.1 x10^3/uL (0.0-0.7) Basophils # (Auto) 0.1 x10^3/uL (0.0-0.2) Sodium Level 139 mmol/L (136-145) Potassium Level 4.5 mmol/L (3.5-5.1) Chloride Level 106 mmol/L (98-107) Carbon Dioxide Level 23 mmol/L (21-32) Anion Gap 10 (6-14) Blood Urea Nitrogen 35 mg/dL (8-26) Creatinine 1.6 mg/dL (0.7-1.3) Estimated GFR (Cockcroft-Gault) 53.8 BUN/Creatinine Ratio 22 (6-20) Glucose Level 100 mg/dL (70-99) Calcium Level 8.5 mg/dL (8.5-10.1) Magnesium Level 2.0 mg/dL (1.8-2.4) Total Bilirubin 1.4 mg/dL (0.2-1.0) Aspartate Amino Transf (AST/SGOT) 102 U/L (15-37) Alanine Aminotransferase (ALT/SGPT) 183 U/L (16-63) Alkaline Phosphatase 102 U/L (46-116) Total Protein 6.6 g/dL (6.4-8.2) Albumin 2.9 g/dL (3.4-5.0) Albumin/Globulin Ratio 0.8 (1.0-1.7) Microbiology 04/21/17 Blood Culture - Preliminary, Resulted NO GROWTH AFTER 2 DAYS Medications Current Medications Albuterol/ Ipratropium (Duoneb) 3 ml 1X ONCE NEB Last administered on 08:56; Start 04/21/17 at 08:15; Stop 04/21/17 at 08:16; Status DC Furosemide (Lasix) 40 mg 1X ONCE IVP Last administered on 04/21/17 09:49; Start 04/21/17 at 09:45; Stop 04/21/17 at 09:46; Status DC Ondansetron HCl (Zofran) 4 mg PRN Q8HRS PRN IV NAUSEA/VOMITING; Start 04/21/17 at 10:15; Stop 04/21/17 at 12:35; Status DC Acetaminophen (Tylenol) 650 mg PRN Q4HRS PRN PO FEVER; Start 04/21/17 at 10:15 ; Stop 04/22/17 at 10:14; Status DC Furosemide (Lasix) 40 mg DAILY IVP Last administered on 04/23/17 08:34; Start 04/22/17 at 09:00; Stop 04/23/17 at 09:00; Status DC Ondansetron HCl (Zofran) 4 mg PRN Q6HRS PRN IV NAUSEA/VOMITING; Start 04/21/17 at 12:45; Stop 04/22/17 at 12:44; Status DC Amiodarone HCl (Cordarone) 200 mg BID PO Last administered on 04/23/17 08:35; Start 04/21/17 at 21:00; Stop 04/23/17 at 09:00; Status DC Aspirin (Ecotrin) 81 mg DAILY PO Last administered on 04/23/17 08:35; Start at 13:00 Atorvastatin Calcium (Lipitor) 10 mg QHS PO Last administered on 04/22/17 20: 01; Start 04/21/17 at 21:00 Lisinopril (Prinivil) 5 mg DAILY PO Last administered on 04/23/17 08:36; Start 04/21/17 at 13:00; Stop 04/23/17 at 09:00; Status DC Metoprolol Tartrate (Lopressor) 50 mg BID PO Last administered on 04/23/17 08: 36; Start 04/21/17 at 21:00 Isosorbide Mononitrate (Imdur) 60 mg DAILY PO Last administered on 04/23/17 08 :35; Start 04/21/17 at 09:00; Stop 04/23/17 at 09:00; Status DC Albuterol/ Ipratropium (Duoneb) 3 ml RTQID NEB Last administered on 04/23/17 11:55; Start 04/22/17 at 12:00 Amiodarone HCl (Cordarone) 200 mg DAILY PO ; Start 04/23/17 at 09:30; Stop 04/23 at 09:30; Status DC Furosemide (Lasix) 40 mg BID IVP ; Start 04/23/17 at 21:00 Isosorbide Mononitrate (Imdur) 30 mg DAILY PO ; Start 04/23/17 at 09:00 Lisinopril (Prinivil) 10 mg DAILY PO ; Start 04/24/17 at 09:00 Amiodarone HCl (Cordarone) 200 mg DAILY PO ; Start 04/24/17 at 09:00 Active Scripts Active Metoprolol Tartrate 50 Mg Tablet 1 Tab PO BID Aspir 81 (Aspirin) 81 Mg Tablet.dr 1 Tab PO DAILY Lisinopril 5 Mg Tablet 1 Tab PO DAILY Amiodarone Hcl 200 Mg Tablet 1 Tab PO BID Lipitor (Atorvastatin Calcium) 10 Mg Tablet 1 Tab PO QHS Isosorbide Mononitrate Er (Isosorbide Mononitrate) 60 Mg Tab.er.24h 1 Tab PO DAILY Lasix (Furosemide) 40 Mg Tablet 1 Tab PO DAILY Vitals/I & O Vital Sign - Last 24 Hours 04/22/17 04/22/17 04/22/17 04/22/17 13:46 15:00 15:53 19:30 Temp 97.5 97.4 97.5 97.4 Pulse 57 64 Resp 19 22 B/P (MAP) 127/96 (106) 136/88 (104) Pulse Ox 98 100 98 100 O2 Delivery Room Air Room Air Room Air Room Air 04/22/17 04/22/17 04/22/17 04/22/17 19:31 20:01 20:01 23:15 Temp 97.4 97.4 Pulse 57 57 58 Resp 26 B/P (MAP) 127/96 127/96 123/90 (101) Pulse Ox 94 100 O2 Delivery Room Air Room Air 04/23/17 04/23/17 04/23/17 04/23/17 03:20 07:00 07:13 08:00 Temp 97.1 97.3 97.1 97.3 Pulse 62 74 Resp 22 B/P (MAP) 124/86 (99) 136/101 (113) Pulse Ox 100 96 100 O2 Delivery Room Air Room Air Room Air Room Air 04/23/17 04/23/17 04/23/17 04/23/17 08:35 08:35 08:36 08:36 Pulse 74 74 74 74 B/P (MAP) 136/101 136/101 136/101 136/101 04/23/17 04/23/17 04/23/17 09:00 11:00 11:56 Temp 97.3 97.3 Pulse 74 56 Resp 24 B/P (MAP) 136/101 129/88 (102) Pulse Ox 100 O2 Delivery Room Air Room Air BARBARA FERNANDES MD Apr 23, 2017 12:24
[2017-04-23 15:21] VITALS: BP 130/95
[2017-04-23 19:00] VITALS: BP 137/92
[2017-04-23] MEDS: ATORVASTATIN CALCIUM 10 MG TABLET. PO SCH (20:07)
[2017-04-23 23:17] VITALS: BP 112/83
[2017-04-24 03:00] VITALS: BP 129/76
[2017-04-24 07:06] VITALS: BP 136/94
[2017-04-24] MEDS: IPRATRPIUM/ALBUTEROL 0.5/2.5MG 3 ML NEBU. NEB SCH ×4 (07:10→19:29)
[2017-04-24] MEDS: ASPIRIN ENTERIC COATED 81 MG TABLET.DR. PO SCH (08:04)
[2017-04-24] MEDS: AMIODARONE HCL 200 MG TABLET. PO SCH (08:04)
[2017-04-24] MEDS: ISOSORBIDE MONONITRATE ER 30 MG TAB.ER.24H PO SCH (08:05)
[2017-04-24] MEDS: METOPROLOL TART IMMED RELEASE 50 MG TABLET. PO SCH ×2 (08:05→20:43)
[2017-04-24] MEDS: LISINOPRIL 10 MG TABLET PO SCH (08:06)
[2017-04-24] MEDS: FUROSEMIDE 40 MG/4 ML VIAL. IVP SCH ×2 (08:06→20:43)
[2017-04-24 08:43] LABS: CALCIUM 8.7 mg/dL (8.5-10.1); CREATININE 1.7 mg/dL (0.7-1.3); GFR 50.2; MAGNESIUM 1.8 mg/dL (1.8-2.4); POTASSIUM 4.8 mmol/L (3.5-5.1)
--- NOTE | 2017-04-24 09:24 | PDOC ---
Provider Note Provider Note Subjective: Still short of air. Objective: VSS 1+ edema. Negative 1 L overnight lungs clr neck veins distended abd soft normal heart tones. Labs: Cr 1.7, increased from 1.4 Assessment: 1. Acute on chronic systolic HF 2. CAD with LM involvement Plan: 1. Continue lasix and present meds with close monitoring of renal function. Anticipate that he will likely have some worsening cr with diuresis but this will help with optimization of his HF 2. If significant changes to cr or no improvement in SOA, will plan for LM stent on tuesday. If doing better with stable labs tomorrow, anticipate DC. 3. Discussed need for dietary compliance again. patient overall has poor insight and judgement into his disease state. No family available to discuss issues. Thanks. Will follow. JADE WATSON MD Apr 24, 2017 09:24
[2017-04-24] MEDS ORDERED: ONDANSETRON PF 4 MG/2 ML VIAL. IV PRN (10:30)
[2017-04-24] MEDS ORDERED: ACETAMINOPHEN 500 MG TABLET PO PRN (10:30)
[2017-04-24 11:00] VITALS: BP 116/90
--- NOTE | 2017-04-24 12:53 | PDOC ---
PROGRESS NOTES Chief Complaint Chief Complaint 1. CHF exacerbation 2. Leg edema from CHF 3. CVA: multiple subacute infarcts per MRI. neurology following 4. Acute on chronic systolic heart failure: LVEF 10-15%, in February 2017 5. CAD/NSTEMI: 6 HTN: 7. COPD/severe pulmonary HTN/tobaccoism: 8. CKD3 History of Present Illness History of Present Illness Leg swelling better SOA soem this AM Getting IV lasix BID K ok Creat stable elevated CArds planning on some procedure Tues.. PCI? or thoughts of lifevest PLAN: LAbs while on diuresis Replace K if gets low - so far not happening Pt./OT Supprotive meds Life vest thoughts,,.,. Vitals Vitals Vital Signs Date Time Temp Pulse Resp B/P (MAP) Pulse Ox O2 Delivery O2 Flow Rate FiO2 04/24/17 11:04 97 Room Air 04/24/17 11:00 97.9 57 20 116/90 (99) 2.0 97.9 Physical Exam General: Alert, Oriented X3, Cooperative Heart: Regular rate, Normal S1, Normal S2, Other Lungs: Clear Abdomen: Soft, No tenderness Extremities: No clubbing, Other (1+ pitting edema) Skin: No breakdown, No significant lesion Labs LABS Laboratory Tests Test 04/24/17 08:17 Sodium Level 139 mmol/L (136-145) Potassium Level 4.8 mmol/L (3.5-5.1) Chloride Level 105 mmol/L (98-107) Carbon Dioxide Level 27 mmol/L (21-32) Anion Gap 7 (6-14) Blood Urea Nitrogen 32 mg/dL (8-26) Creatinine 1.7 mg/dL (0.7-1.3) Estimated GFR (Cockcroft-Gault) 50.2 Glucose Level 96 mg/dL (70-99) Calcium Level 8.7 mg/dL (8.5-10.1) Magnesium Level 1.8 mg/dL (1.8-2.4) Review of Systems Review of Systems soa Assessment and Plan Assessmemt and Plan Problems Medical Problems: (1) Acute renal failure Status: Acute (2) CHF (congestive heart failure) Status: Acute (3) Elevated troponin Status: Acute Problems: Comment Review of Relevant I have reviewed the following items martin (where applicable) has been applied. Labs Laboratory Tests Test 04/23/17 04:30 04/24/17 08:17 White Blood Count 4.9 x10^3/uL (4.0-11.0) Red Blood Count 4.58 x10^6/uL (4.30-5.70) Hemoglobin 12.2 g/dL (13.0-17.5) Hematocrit 38.0 % (39.0-53.0) Mean Corpuscular Volume 83 fL (79-100) Mean Corpuscular Hemoglobin 27 pg (25-35) Mean Corpuscular Hemoglobin Concent 32 g/dL (31-37) Red Cell Distribution Width 15.7 % (11.5-14.5) Platelet Count 135 x10^3/uL (140-400) Neutrophils (%) (Auto) 52 % (31-73) Lymphocytes (%) (Auto) 37 % (24-48) Monocytes (%) (Auto) 7 % (0-9) Eosinophils (%) (Auto) 2 % (0-3) Basophils (%) (Auto) 1 % (0-3) Neutrophils # (Auto) 2.6 x10^3uL (1.8-7.7) Lymphocytes # (Auto) 1.8 x10^3/uL (1.0-4.8) Monocytes # (Auto) 0.3 x10^3/uL (0.0-1.1) Eosinophils # (Auto) 0.1 x10^3/uL (0.0-0.7) Basophils # (Auto) 0.1 x10^3/uL (0.0-0.2) Sodium Level 139 mmol/L (136-145) 139 mmol/L (136-145) Potassium Level 4.5 mmol/L (3.5-5.1) 4.8 mmol/L (3.5-5.1) Chloride Level 106 mmol/L (98-107) 105 mmol/L (98-107) Carbon Dioxide Level 23 mmol/L (21-32) 27 mmol/L (21-32) Anion Gap 10 (6-14) 7 (6-14) Blood Urea Nitrogen 35 mg/dL (8-26) 32 mg/dL (8-26) Creatinine 1.6 mg/dL (0.7-1.3) 1.7 mg/dL (0.7-1.3) Estimated GFR (Cockcroft-Gault) 53.8 50.2 BUN/Creatinine Ratio 22 (6-20) Glucose Level 100 mg/dL (70-99) 96 mg/dL (70-99) Calcium Level 8.5 mg/dL (8.5-10.1) 8.7 mg/dL (8.5-10.1) Magnesium Level 2.0 mg/dL (1.8-2.4) 1.8 mg/dL (1.8-2.4) Total Bilirubin 1.4 mg/dL (0.2-1.0) Aspartate Amino Transf (AST/SGOT) 102 U/L (15-37) Alanine Aminotransferase (ALT/SGPT) 183 U/L (16-63) Alkaline Phosphatase 102 U/L (46-116) Total Protein 6.6 g/dL (6.4-8.2) Albumin 2.9 g/dL (3.4-5.0) Albumin/Globulin Ratio 0.8 (1.0-1.7) Laboratory Tests Test 04/24/17 08:17 Sodium Level 139 mmol/L (136-145) Potassium Level 4.8 mmol/L (3.5-5.1) Chloride Level 105 mmol/L (98-107) Carbon Dioxide Level 27 mmol/L (21-32) Anion Gap 7 (6-14) Blood Urea Nitrogen 32 mg/dL (8-26) Creatinine 1.7 mg/dL (0.7-1.3) Estimated GFR (Cockcroft-Gault) 50.2 Glucose Level 96 mg/dL (70-99) Calcium Level 8.7 mg/dL (8.5-10.1) Magnesium Level 1.8 mg/dL (1.8-2.4) Microbiology 04/21/17 Blood Culture - Preliminary, Resulted NO GROWTH AFTER 3 DAYS Medications Current Medications Albuterol/ Ipratropium (Duoneb) 3 ml 1X ONCE NEB Last administered on 08:56; Start 04/21/17 at 08:15; Stop 04/21/17 at 08:16; Status DC Furosemide (Lasix) 40 mg 1X ONCE IVP Last administered on 04/21/17 09:49; Start 04/21/17 at 09:45; Stop 04/21/17 at 09:46; Status DC Ondansetron HCl (Zofran) 4 mg PRN Q8HRS PRN IV NAUSEA/VOMITING; Start 04/21/17 at 10:15; Stop 04/21/17 at 12:35; Status DC Acetaminophen (Tylenol) 650 mg PRN Q4HRS PRN PO FEVER; Start 04/21/17 at 10:15 ; Stop 04/22/17 at 10:14; Status DC Furosemide (Lasix) 40 mg DAILY IVP Last administered on 04/23/17 08:34; Start 04/22/17 at 09:00; Stop 04/23/17 at 09:00; Status DC Ondansetron HCl (Zofran) 4 mg PRN Q6HRS PRN IV NAUSEA/VOMITING; Start 04/21/17 at 12:45; Stop 04/22/17 at 12:44; Status DC Amiodarone HCl (Cordarone) 200 mg BID PO Last administered on 04/23/17 08:35; Start 04/21/17 at 21:00; Stop 04/23/17 at 09:00; Status DC Aspirin (Ecotrin) 81 mg DAILY PO Last administered on 04/24/17 08:04; Start at 13:00 Atorvastatin Calcium (Lipitor) 10 mg QHS PO Last administered on 04/23/17 20: 07; Start 04/21/17 at 21:00 Lisinopril (Prinivil) 5 mg DAILY PO Last administered on 04/23/17 08:36; Start 04/21/17 at 13:00; Stop 04/23/17 at 09:00; Status DC Metoprolol Tartrate (Lopressor) 50 mg BID PO Last administered on 04/24/17 08: 05; Start 04/21/17 at 21:00 Isosorbide Mononitrate (Imdur) 60 mg DAILY PO Last administered on 04/23/17 08 :35; Start 04/21/17 at 09:00; Stop 04/23/17 at 09:00; Status DC Albuterol/ Ipratropium (Duoneb) 3 ml RTQID NEB Last administered on 04/24/17 11:04; Start 04/22/17 at 12:00 Amiodarone HCl (Cordarone) 200 mg DAILY PO ; Start 04/23/17 at 09:30; Stop 04/23 at 09:30; Status DC Furosemide (Lasix) 40 mg BID IVP Last administered on 04/24/17 08:06; Start at 21:00 Isosorbide Mononitrate (Imdur) 30 mg DAILY PO Last administered on 04/24/17 08 :05; Start 04/23/17 at 09:00 Lisinopril (Prinivil) 10 mg DAILY PO Last administered on 04/24/17 08:06; Start 04/24/17 at 09:00 Amiodarone HCl (Cordarone) 200 mg DAILY PO Last administered on 04/24/17 08:04 ; Start 04/24/17 at 09:00 Acetaminophen (Tylenol) 500 mg PRN Q6HRS PRN PO MILD PAIN / TEMP; Start at 10:30 Ondansetron HCl (Zofran) 4 mg PRN Q6HRS PRN IV NAUSEA/VOMITING; Start 04/24/17 at 10:30 Active Scripts Active Metoprolol Tartrate 50 Mg Tablet 1 Tab PO BID Aspir 81 (Aspirin) 81 Mg Tablet.dr 1 Tab PO DAILY Lisinopril 5 Mg Tablet 1 Tab PO DAILY Amiodarone Hcl 200 Mg Tablet 1 Tab PO BID Lipitor (Atorvastatin Calcium) 10 Mg Tablet 1 Tab PO QHS Isosorbide Mononitrate Er (Isosorbide Mononitrate) 60 Mg Tab.er.24h 1 Tab PO DAILY Lasix (Furosemide) 40 Mg Tablet 1 Tab PO DAILY Vitals/I & O Vital Sign - Last 24 Hours 04/23/17 04/23/17 04/23/17 04/23/17 15:21 15:28 19:00 19:46 Temp 97.8 97.5 97.8 97.5 Pulse 59 67 Resp 18 23 B/P (MAP) 130/95 (107) 137/92 (107) Pulse Ox 98 94 99 O2 Delivery Room Air Room Air Nasal Cannula Room Air O2 Flow Rate 1.0 04/23/17 04/23/17 04/24/17 04/24/17 20:07 23:17 03:00 07:06 Temp 97.4 97.4 97.8 97.4 97.4 97.8 Pulse 67 59 63 61 Resp 24 22 20 B/P (MAP) 137/92 112/83 (93) 129/76 (93) 136/94 (108) Pulse Ox 100 100 100 O2 Delivery Room Air Room Air Room Air 04/24/17 04/24/17 04/24/17 04/24/17 07:10 08:04 08:05 08:05 Pulse 61 61 61 B/P (MAP) 136/94 136/94 136/94 Pulse Ox 100 O2 Delivery Room Air 04/24/17 04/24/17 04/24/17 04/24/17 08:06 08:10 11:00 11:04 Temp 97.9 97.9 Pulse 61 57 Resp 20 B/P (MAP) 136/94 116/90 (99) Pulse Ox 100 97 O2 Delivery Room Air Nasal Cannula Room Air O2 Flow Rate 1.0 2.0 BARBARA FERNANDES MD Apr 24, 2017 12:53
[2017-04-24 15:00] VITALS: BP 127/98
[2017-04-24 19:00] VITALS: BP 137/98
[2017-04-24] MEDS: ATORVASTATIN CALCIUM 10 MG TABLET. PO SCH (20:43)
[2017-04-24 23:00] VITALS: BP 135/103
[2017-04-25 03:00] VITALS: BP 116/84
[2017-04-25 06:38] LABS: CALCIUM 8.9 mg/dL (8.5-10.1); CREATININE 1.7 mg/dL (0.7-1.3); GFR 50.2; POTASSIUM 4.5 mmol/L (3.5-5.1)
[2017-04-25 07:45] VITALS: BP 127/91
[2017-04-25] MEDS: IPRATRPIUM/ALBUTEROL 0.5/2.5MG 3 ML NEBU. NEB SCH ×4 (08:05→19:38)
[2017-04-25] MEDS: ISOSORBIDE MONONITRATE ER 30 MG TAB.ER.24H PO SCH (09:42)
[2017-04-25] MEDS: METOPROLOL TART IMMED RELEASE 50 MG TABLET. PO SCH ×2 (09:42→21:31)
[2017-04-25] MEDS: ASPIRIN ENTERIC COATED 81 MG TABLET.DR. PO SCH (09:42)
[2017-04-25] MEDS: AMIODARONE HCL 200 MG TABLET. PO SCH (09:42)
[2017-04-25] MEDS: FUROSEMIDE 40 MG/4 ML VIAL. IVP SCH (09:43)
[2017-04-25] MEDS: LISINOPRIL 10 MG TABLET PO SCH (09:43)
[2017-04-25 10:40] VITALS: BP 126/85
[2017-04-25] MEDS: MILRINONE 20MG/100ML PREMIX 100 ML IV PRN (13:28)
--- NOTE | 2017-04-25 13:35 | PDOC ---
PROGRESS NOTES Chief Complaint Chief Complaint 1. CHF exacerbation 2. Leg edema from CHF 3. CVA: multiple subacute infarcts per MRI. neurology following 4. Acute on chronic systolic heart failure: LVEF 10-15%, in February 2017 5. CAD/NSTEMI: 6 HTN: 7. COPD/severe pulmonary HTN/tobaccoism: 8. CKD3 MARILYN ,vasomotor plan: fu with card, on lasix 40mg iv bid cath plan for tmr monitor Cr daily weight daily intake and output daily dvt ppx History of Present Illness History of Present Illness ROS: no fever, chills, chest pain \ still sob, with mild exertional, especially walking. no chest pain off NC, sat ok Cr .1.7 Vitals Vitals Vital Signs Date Time Temp Pulse Resp B/P (MAP) Pulse Ox O2 Delivery O2 Flow Rate FiO2 04/25/17 10:40 97.7 68 20 126/85 (99) 100 Room Air 97.7 04/25/17 03:00 2.0 Physical Exam General: Alert, Oriented X3, Cooperative Heart: Regular rate, Normal S1, Normal S2, Other Lungs: Clear Abdomen: Soft, No tenderness Extremities: No clubbing, Other (2+ pitting edema) Skin: No breakdown, No significant lesion Labs LABS Laboratory Tests Test 04/25/17 05:40 Sodium Level 139 mmol/L (136-145) Potassium Level 4.5 mmol/L (3.5-5.1) Chloride Level 104 mmol/L (98-107) Carbon Dioxide Level 25 mmol/L (21-32) Anion Gap 10 (6-14) Blood Urea Nitrogen 32 mg/dL (8-26) Creatinine 1.7 mg/dL (0.7-1.3) Estimated GFR (Cockcroft-Gault) 50.2 Glucose Level 96 mg/dL (70-99) Calcium Level 8.9 mg/dL (8.5-10.1) Assessment and Plan Assessmemt and Plan Problems Medical Problems: (1) Acute renal failure Status: Acute (2) CHF (congestive heart failure) Status: Acute (3) Elevated troponin Status: Acute Problems: Comment Review of Relevant I have reviewed the following items martin (where applicable) has been applied. Labs Laboratory Tests Test 04/24/17 08:17 04/25/17 05:40 Sodium Level 139 mmol/L (136-145) 139 mmol/L (136-145) Potassium Level 4.8 mmol/L (3.5-5.1) 4.5 mmol/L (3.5-5.1) Chloride Level 105 mmol/L (98-107) 104 mmol/L (98-107) Carbon Dioxide Level 27 mmol/L (21-32) 25 mmol/L (21-32) Anion Gap 7 (6-14) 10 (6-14) Blood Urea Nitrogen 32 mg/dL (8-26) 32 mg/dL (8-26) Creatinine 1.7 mg/dL (0.7-1.3) 1.7 mg/dL (0.7-1.3) Estimated GFR (Cockcroft-Gault) 50.2 50.2 Glucose Level 96 mg/dL (70-99) 96 mg/dL (70-99) Calcium Level 8.7 mg/dL (8.5-10.1) 8.9 mg/dL (8.5-10.1) Magnesium Level 1.8 mg/dL (1.8-2.4) Laboratory Tests Test 04/25/17 05:40 Sodium Level 139 mmol/L (136-145) Potassium Level 4.5 mmol/L (3.5-5.1) Chloride Level 104 mmol/L (98-107) Carbon Dioxide Level 25 mmol/L (21-32) Anion Gap 10 (6-14) Blood Urea Nitrogen 32 mg/dL (8-26) Creatinine 1.7 mg/dL (0.7-1.3) Estimated GFR (Cockcroft-Gault) 50.2 Glucose Level 96 mg/dL (70-99) Calcium Level 8.9 mg/dL (8.5-10.1) Microbiology 04/21/17 Blood Culture - Preliminary, Resulted NO GROWTH AFTER 4 DAYS Medications Current Medications Albuterol/ Ipratropium (Duoneb) 3 ml 1X ONCE NEB Last administered on 08:56; Start 04/21/17 at 08:15; Stop 04/21/17 at 08:16; Status DC Furosemide (Lasix) 40 mg 1X ONCE IVP Last administered on 04/21/17 09:49; Start 04/21/17 at 09:45; Stop 04/21/17 at 09:46; Status DC Ondansetron HCl (Zofran) 4 mg PRN Q8HRS PRN IV NAUSEA/VOMITING; Start 04/21/17 at 10:15; Stop 04/21/17 at 12:35; Status DC Acetaminophen (Tylenol) 650 mg PRN Q4HRS PRN PO FEVER; Start 04/21/17 at 10:15 ; Stop 04/22/17 at 10:14; Status DC Furosemide (Lasix) 40 mg DAILY IVP Last administered on 04/23/17 08:34; Start 04/22/17 at 09:00; Stop 04/23/17 at 09:00; Status DC Ondansetron HCl (Zofran) 4 mg PRN Q6HRS PRN IV NAUSEA/VOMITING; Start 04/21/17 at 12:45; Stop 04/22/17 at 12:44; Status DC Amiodarone HCl (Cordarone) 200 mg BID PO Last administered on 04/23/17 08:35; Start 04/21/17 at 21:00; Stop 04/23/17 at 09:00; Status DC Aspirin (Ecotrin) 81 mg DAILY PO Last administered on 04/25/17 09:42; Start at 13:00 Atorvastatin Calcium (Lipitor) 10 mg QHS PO Last administered on 04/24/17 20: 43; Start 04/21/17 at 21:00 Lisinopril (Prinivil) 5 mg DAILY PO Last administered on 04/23/17 08:36; Start 04/21/17 at 13:00; Stop 04/23/17 at 09:00; Status DC Metoprolol Tartrate (Lopressor) 50 mg BID PO Last administered on 04/25/17 09: 42; Start 04/21/17 at 21:00 Isosorbide Mononitrate (Imdur) 60 mg DAILY PO Last administered on 04/23/17 08 :35; Start 04/21/17 at 09:00; Stop 04/23/17 at 09:00; Status DC Albuterol/ Ipratropium (Duoneb) 3 ml RTQID NEB Last administered on 04/25/17 08:05; Start 04/22/17 at 12:00 Amiodarone HCl (Cordarone) 200 mg DAILY PO ; Start 04/23/17 at 09:30; Stop 04/23 at 09:30; Status DC Furosemide (Lasix) 40 mg BID IVP Last administered on 04/25/17 09:43; Start at 21:00 Isosorbide Mononitrate (Imdur) 30 mg DAILY PO Last administered on 04/25/17 09 :42; Start 04/23/17 at 09:00 Lisinopril (Prinivil) 10 mg DAILY PO Last administered on 04/25/17 09:43; Start 04/24/17 at 09:00 Amiodarone HCl (Cordarone) 200 mg DAILY PO Last administered on 04/25/17 09:42 ; Start 04/24/17 at 09:00 Acetaminophen (Tylenol) 500 mg PRN Q6HRS PRN PO MILD PAIN / TEMP; Start at 10:30 Ondansetron HCl (Zofran) 4 mg PRN Q6HRS PRN IV NAUSEA/VOMITING; Start 04/24/17 at 10:30 Milrinone Lactate/ Dextrose 100 ml @ 3.233 mls/ hr CONT PRN IV SEE I/O RECORD Last administered on 04/25/17 13:28; Start 04/25/17 at 13:00 Active Scripts Active Metoprolol Tartrate 50 Mg Tablet 1 Tab PO BID Aspir 81 (Aspirin) 81 Mg Tablet.dr 1 Tab PO DAILY Lisinopril 5 Mg Tablet 1 Tab PO DAILY Amiodarone Hcl 200 Mg Tablet 1 Tab PO BID Lipitor (Atorvastatin Calcium) 10 Mg Tablet 1 Tab PO QHS Isosorbide Mononitrate Er (Isosorbide Mononitrate) 60 Mg Tab.er.24h 1 Tab PO DAILY Lasix (Furosemide) 40 Mg Tablet 1 Tab PO DAILY Vitals/I & O Vital Sign - Last 24 Hours 04/24/17 04/24/17 04/24/17 04/24/17 15:00 15:31 19:00 19:29 Temp 97.9 98.1 97.9 98.1 Pulse 57 66 Resp 20 16 B/P (MAP) 127/98 (108) 137/98 (111) Pulse Ox 100 92 O2 Delivery Nasal Cannula Room Air Nasal Cannula Room Air O2 Flow Rate 2.0 2.0 04/24/17 04/24/17 04/25/1704/25/17 20:43 23:00 03:00 07:45 Temp 98.0 98.1 97.6 98.0 98.1 97.6 Pulse 57 65 72 68 Resp 17 19 24 B/P (MAP) 127/98 135/103 (114) 116/84 (95) 127/91 (103) Pulse Ox 94 100 99 O2 Delivery Room Air Nasal Cannula Room Air O2 Flow Rate 2.0 2.0 04/25/17 04/25/17 04/25/17 04/25/17 08:07 08:10 09:42 09:42 Pulse 68 68 B/P (MAP) 127/91 127/91 Pulse Ox 100 O2 Delivery Room Air Room Air 04/25/17 04/25/17 04/25/17 09:42 09:43 10:40 Temp 97.7 97.7 Pulse 68 68 68 Resp 20 B/P (MAP) 127/91 127/91 126/85 (99) Pulse Ox 100 O2 Delivery Room Air Intake and Output 04/25/17 04/25/17 04/26/17 15:00 23:00 07:00 Intake Total 240 ml Balance 240 ml LISSETT GUEVARA MD Apr 25, 2017 13:35
--- NOTE | 2017-04-25 13:44 | PDOC ---
JOSE LÓPEZ SAFETY PATROL OFFICER 04/25/17 1344: CARDIO Progress Notes Date and Time Date of Service 04/25/2017 Time of Evaluation 1320 Subjective Subjective: No Chest Pain, No Palpitations, Other (postive for orthopnea sitll has intermittent SOA) Vitals Vitals Vital Signs Date Time Temp Pulse Resp B/P (MAP) Pulse Ox O2 Delivery O2 Flow Rate FiO2 04/25/17 10:40 97.7 68 20 126/85 (99) 100 Room Air 97.7 04/25/17 03:00 2.0 Weight Weight [ ] Input and Output Intake and Output Intake and Output 04/26/17 07:00 Intake Total 240 ml Balance 240 ml Intake Oral 240 ml Laboratory Labs Laboratory Tests Test 04/25/17 05:40 Sodium Level 139 mmol/L (136-145) Potassium Level 4.5 mmol/L (3.5-5.1) Chloride Level 104 mmol/L (98-107) Carbon Dioxide Level 25 mmol/L (21-32) Anion Gap 10 (6-14) Blood Urea Nitrogen 32 mg/dL (8-26) Creatinine 1.7 mg/dL (0.7-1.3) Estimated GFR (Cockcroft-Gault) 50.2 Glucose Level 96 mg/dL (70-99) Calcium Level 8.9 mg/dL (8.5-10.1) Microbiology Micro Microbiology 04/21/17 Blood Culture - Preliminary, Resulted NO GROWTH AFTER 4 DAYS Physical Exam HEENT: Neck Supple W Full Motion Chest: Symmetric LUNGS: Other (bibasilar crackles) Heart: S1S2, RRR (SR/SB with PVCs), murmurs (2/6 systolic murmur ) Abdomen: Soft N/T Extremities: Other (2-3+ bilateral LE edema ) Neurology: alert, oriented, follow commands Assessment Assessment 1. Acute on chronic systolic HF 2. CAD with LM involvement 3. ICM: EF 10-15% 4. COPD/severe pulmonary HTN 5. CKD3 Recommendations 1. Continue with cardiac optimization 2. Daily wt, 2L FR, strict I & O 3. Replace K and Mg with goal at least 4.0 and 2.0 respectively 4. BB and amiodarone. 5. Start milrinone low dose and will uptitrate as warranted, will nte UOP and will adjust diuretic per response. 6. If SOA remains and CHF refractory then will consider for PCI tomorrow. JADE WATSON MD 04/26/17 0218: CARDIO Progress Notes Plan Plan Late entry for 04/25 Pt seen and examined. I had a long discussion today with the patient, his son and daughter in law. We talked about etiologies of HF, relation to his CAD and need for dietary compliance. Will continue to optimize meds as noted above. We also discussed the r/b/a to PCI. Plan as noted above. JOSE LÓPEZ APRN Apr 25, 2017 13:44 JADE WATSON MD Apr 26, 2017 02:18
[2017-04-25 15:15] VITALS: BP 123/85
[2017-04-25] MEDS: HEPARIN PF for SUB-Q USE 5,000 UNIT/0.5 ML VIAL. SQ SCH ×2 (17:04→21:34)
[2017-04-25] MEDS ORDERED: FUROSEMIDE 40 MG/4 ML VIAL. IVP ONE (17:30)
[2017-04-25 19:35] VITALS: BP 118/77
[2017-04-25] MEDS: ATORVASTATIN CALCIUM 10 MG TABLET. PO SCH (21:31)
[2017-04-25 23:30] VITALS: BP 141/102
[2017-04-26] VITALS (7 sets, daily range): BP systolic 105–139; BP diastolic 69–96
[2017-04-26] MEDS: HEPARIN PF for SUB-Q USE 5,000 UNIT/0.5 ML VIAL. SQ SCH ×3 (05:37→21:19)
[2017-04-26 05:38] LABS: BASO % 1 % (0-3); EOS % 3 % (0-3); HEMATOCRIT 36.5 % (39.0-53.0); HEMOGLOBIN 12.2 g/dL (13.0-17.5); LYMPH # 1.5 x10^3/uL (1.0-4.8); LYMPH % 39 % (24-48); MEAN CORPUSCULAR HEMOGLOBIN 27 pg (25-35); MEAN CORPUSCULAR HGB CONC 33 g/dL (31-37); MEAN CORPUSCULAR VOLUME 81 fL (79-100); MONO % 6 % (0-9); NEUT % 51 % (31-73); PLATELET COUNT 127 x10^3/uL (140-400); RED BLOOD COUNT 4.51 x10^6/uL (4.30-5.70); RED CELL DISTRIBUTION WIDTH 15.7 % (11.5-14.5); WHITE BLOOD COUNT 3.8 x10^3/uL (4.0-11.0)
[2017-04-26 06:14] LABS: CALCIUM 8.6 mg/dL (8.5-10.1); CREATININE 1.5 mg/dL (0.7-1.3); POTASSIUM 3.9 mmol/L (3.5-5.1)
[2017-04-26] MEDS: IPRATRPIUM/ALBUTEROL 0.5/2.5MG 3 ML NEBU. NEB SCH ×4 (07:41→19:32)
[2017-04-26] MEDS: FUROSEMIDE 40 MG/4 ML VIAL. IVP SCH ×2 (09:47→15:41)
[2017-04-26] MEDS: LISINOPRIL 10 MG TABLET PO SCH (09:47)
[2017-04-26] MEDS: ASPIRIN ENTERIC COATED 81 MG TABLET.DR. PO SCH (09:48)
[2017-04-26] MEDS: METOPROLOL TART IMMED RELEASE 50 MG TABLET. PO SCH ×2 (09:48→21:15)
[2017-04-26] MEDS: AMIODARONE HCL 200 MG TABLET. PO SCH (09:49)
[2017-04-26] MEDS: ISOSORBIDE MONONITRATE ER 30 MG TAB.ER.24H PO SCH (09:49)
--- NOTE | 2017-04-26 12:27 | PDOC ---
PROGRESS NOTES Chief Complaint Chief Complaint 1. CHF exacerbation 2. Leg edema from CHF 3. CVA: multiple subacute infarcts per MRI. neurology following 4. Acute on chronic systolic heart failure: LVEF 10-15%, in February 2017 5. CAD/NSTEMI 6 HTN 7. COPD/severe pulmonary HTN/tobaccoism: 8. CKD3 MARILYN ,vasomotor plan: fu with card, on lasix 40mg iv bid cath plan for today? fu wiTH card monitor Cr daily on amiodarone and milrinone weight daily intake and output daily dvt ppx History of Present Illness History of Present Illness ROS: no fever, chills, chest pain \ still sob, with mild exertional, especially walking. no chest pain off NC, sat ok Cr .1.5 Vitals Vitals Vital Signs Date Time Temp Pulse Resp B/P (MAP) Pulse Ox O2 Delivery O2 Flow Rate FiO2 04/26/17 11:34 97 Room Air 04/26/17 11:00 97.9 63 18 116/81 (93) 97.9 04/25/17 20:00 2.0 Physical Exam General: Alert, Oriented X3, Cooperative Heart: Regular rate, Normal S1, Normal S2, Other Lungs: Clear Abdomen: Soft, No tenderness Extremities: No clubbing, Other (1- 2+ pitting edema) Skin: No breakdown, No significant lesion Labs LABS Laboratory Tests Test 04/25/17 14:55 04/26/17 04:31 Magnesium Level 2.0 mg/dL (1.8-2.4) White Blood Count 3.8 x10^3/uL (4.0-11.0) Red Blood Count 4.51 x10^6/uL (4.30-5.70) Hemoglobin 12.2 g/dL (13.0-17.5) Hematocrit 36.5 % (39.0-53.0) Mean Corpuscular Volume 81 fL (79-100) Mean Corpuscular Hemoglobin 27 pg (25-35) Mean Corpuscular Hemoglobin Concent 33 g/dL (31-37) Red Cell Distribution Width 15.7 % (11.5-14.5) Platelet Count 127 x10^3/uL (140-400) Neutrophils (%) (Auto) 51 % (31-73) Lymphocytes (%) (Auto) 39 % (24-48) Monocytes (%) (Auto) 6 % (0-9) Eosinophils (%) (Auto) 3 % (0-3) Basophils (%) (Auto) 1 % (0-3) Neutrophils # (Auto) 2.0 x10^3uL (1.8-7.7) Lymphocytes # (Auto) 1.5 x10^3/uL (1.0-4.8) Monocytes # (Auto) 0.2 x10^3/uL (0.0-1.1) Eosinophils # (Auto) 0.1 x10^3/uL (0.0-0.7) Basophils # (Auto) 0.0 x10^3/uL (0.0-0.2) Sodium Level 139 mmol/L (136-145) Potassium Level 3.9 mmol/L (3.5-5.1) Chloride Level 104 mmol/L (98-107) Carbon Dioxide Level 26 mmol/L (21-32) Anion Gap 9 (6-14) Blood Urea Nitrogen 29 mg/dL (8-26) Creatinine 1.5 mg/dL (0.7-1.3) Estimated GFR (Cockcroft-Gault) 58.0 Glucose Level 77 mg/dL (70-99) Calcium Level 8.6 mg/dL (8.5-10.1) Assessment and Plan Assessmemt and Plan Problems Medical Problems: (1) Acute renal failure Status: Acute (2) CHF (congestive heart failure) Status: Acute (3) Elevated troponin Status: Acute Problems: Comment Review of Relevant I have reviewed the following items martin (where applicable) has been applied. Labs Laboratory Tests Test 04/25/17 05:40 04/25/17 14:55 04/26/17 04:31 Sodium Level 139 mmol/L (136-145) 139 mmol/L (136-145) Potassium Level 4.5 mmol/L (3.5-5.1) 3.9 mmol/L (3.5-5.1) Chloride Level 104 mmol/L (98-107) 104 mmol/L (98-107) Carbon Dioxide Level 25 mmol/L (21-32) 26 mmol/L (21-32) Anion Gap 10 (6-14) 9 (6-14) Blood Urea Nitrogen 32 mg/dL (8-26) 29 mg/dL (8-26) Creatinine 1.7 mg/dL (0.7-1.3) 1.5 mg/dL (0.7-1.3) Estimated GFR (Cockcroft-Gault) 50.2 58.0 Glucose Level 96 mg/dL (70-99) 77 mg/dL (70-99) Calcium Level 8.9 mg/dL (8.5-10.1) 8.6 mg/dL (8.5-10.1) Magnesium Level 2.0 mg/dL (1.8-2.4) 2.0 mg/dL (1.8-2.4) White Blood Count 3.8 x10^3/uL (4.0-11.0) Red Blood Count 4.51 x10^6/uL (4.30-5.70) Hemoglobin 12.2 g/dL (13.0-17.5) Hematocrit 36.5 % (39.0-53.0) Mean Corpuscular Volume 81 fL (79-100) Mean Corpuscular Hemoglobin 27 pg (25-35) Mean Corpuscular Hemoglobin Concent 33 g/dL (31-37) Red Cell Distribution Width 15.7 % (11.5-14.5) Platelet Count 127 x10^3/uL (140-400) Neutrophils (%) (Auto) 51 % (31-73) Lymphocytes (%) (Auto) 39 % (24-48) Monocytes (%) (Auto) 6 % (0-9) Eosinophils (%) (Auto) 3 % (0-3) Basophils (%) (Auto) 1 % (0-3) Neutrophils # (Auto) 2.0 x10^3uL (1.8-7.7) Lymphocytes # (Auto) 1.5 x10^3/uL (1.0-4.8) Monocytes # (Auto) 0.2 x10^3/uL (0.0-1.1) Eosinophils # (Auto) 0.1 x10^3/uL (0.0-0.7) Basophils # (Auto) 0.0 x10^3/uL (0.0-0.2) Laboratory Tests Test 04/25/17 14:55 04/26/17 04:31 Magnesium Level 2.0 mg/dL (1.8-2.4) White Blood Count 3.8 x10^3/uL (4.0-11.0) Red Blood Count 4.51 x10^6/uL (4.30-5.70) Hemoglobin 12.2 g/dL (13.0-17.5) Hematocrit 36.5 % (39.0-53.0) Mean Corpuscular Volume 81 fL (79-100) Mean Corpuscular Hemoglobin 27 pg (25-35) Mean Corpuscular Hemoglobin Concent 33 g/dL (31-37) Red Cell Distribution Width 15.7 % (11.5-14.5) Platelet Count 127 x10^3/uL (140-400) Neutrophils (%) (Auto) 51 % (31-73) Lymphocytes (%) (Auto) 39 % (24-48) Monocytes (%) (Auto) 6 % (0-9) Eosinophils (%) (Auto) 3 % (0-3) Basophils (%) (Auto) 1 % (0-3) Neutrophils # (Auto) 2.0 x10^3uL (1.8-7.7) Lymphocytes # (Auto) 1.5 x10^3/uL (1.0-4.8) Monocytes # (Auto) 0.2 x10^3/uL (0.0-1.1) Eosinophils # (Auto) 0.1 x10^3/uL (0.0-0.7) Basophils # (Auto) 0.0 x10^3/uL (0.0-0.2) Sodium Level 139 mmol/L (136-145) Potassium Level 3.9 mmol/L (3.5-5.1) Chloride Level 104 mmol/L (98-107) Carbon Dioxide Level 26 mmol/L (21-32) Anion Gap 9 (6-14) Blood Urea Nitrogen 29 mg/dL (8-26) Creatinine 1.5 mg/dL (0.7-1.3) Estimated GFR (Cockcroft-Gault) 58.0 Glucose Level 77 mg/dL (70-99) Calcium Level 8.6 mg/dL (8.5-10.1) Microbiology 04/21/17 Blood Culture - Final, Complete NO GROWTH AFTER 5 DAYS Medications Current Medications Albuterol/ Ipratropium (Duoneb) 3 ml 1X ONCE NEB Last administered on 08:56; Start 04/21/17 at 08:15; Stop 04/21/17 at 08:16; Status DC Furosemide (Lasix) 40 mg 1X ONCE IVP Last administered on 04/21/17 09:49; Start 04/21/17 at 09:45; Stop 04/21/17 at 09:46; Status DC Ondansetron HCl (Zofran) 4 mg PRN Q8HRS PRN IV NAUSEA/VOMITING; Start 04/21/17 at 10:15; Stop 04/21/17 at 12:35; Status DC Acetaminophen (Tylenol) 650 mg PRN Q4HRS PRN PO FEVER; Start 04/21/17 at 10:15 ; Stop 04/22/17 at 10:14; Status DC Furosemide (Lasix) 40 mg DAILY IVP Last administered on 04/23/17 08:34; Start 04/22/17 at 09:00; Stop 04/23/17 at 09:00; Status DC Ondansetron HCl (Zofran) 4 mg PRN Q6HRS PRN IV NAUSEA/VOMITING; Start 04/21/17 at 12:45; Stop 04/22/17 at 12:44; Status DC Amiodarone HCl (Cordarone) 200 mg BID PO Last administered on 04/23/17 08:35; Start 04/21/17 at 21:00; Stop 04/23/17 at 09:00; Status DC Aspirin (Ecotrin) 81 mg DAILY PO Last administered on 04/26/17 09:48; Start at 13:00 Atorvastatin Calcium (Lipitor) 10 mg QHS PO Last administered on 04/25/17 21: 31; Start 04/21/17 at 21:00 Lisinopril (Prinivil) 5 mg DAILY PO Last administered on 04/23/17 08:36; Start 04/21/17 at 13:00; Stop 04/23/17 at 09:00; Status DC Metoprolol Tartrate (Lopressor) 50 mg BID PO Last administered on 04/26/17 09: 48; Start 04/21/17 at 21:00 Isosorbide Mononitrate (Imdur) 60 mg DAILY PO Last administered on 04/23/17 08 :35; Start 04/21/17 at 09:00; Stop 04/23/17 at 09:00; Status DC Albuterol/ Ipratropium (Duoneb) 3 ml RTQID NEB Last administered on 04/26/17 11:33; Start 04/22/17 at 12:00 Amiodarone HCl (Cordarone) 200 mg DAILY PO ; Start 04/23/17 at 09:30; Stop 04/23 at 09:30; Status DC Furosemide (Lasix) 40 mg BID IVP Last administered on 04/25/17 09:43; Start at 21:00; Stop 04/25/17 at 17:15; Status DC Isosorbide Mononitrate (Imdur) 30 mg DAILY PO Last administered on 04/26/17 09 :49; Start 04/23/17 at 09:00 Lisinopril (Prinivil) 10 mg DAILY PO Last administered on 04/26/17 09:47; Start 04/24/17 at 09:00 Amiodarone HCl (Cordarone) 200 mg DAILY PO Last administered on 04/26/17 09:49 ; Start 04/24/17 at 09:00 Acetaminophen (Tylenol) 500 mg PRN Q6HRS PRN PO MILD PAIN / TEMP; Start at 10:30 Ondansetron HCl (Zofran) 4 mg PRN Q6HRS PRN IV NAUSEA/VOMITING; Start 04/24/17 at 10:30 Milrinone Lactate/ Dextrose 100 ml @ 3.233 mls/ hr CONT PRN IV SEE I/O RECORD Last administered on 04/25/17 13:28; Start 04/25/17 at 13:00 Heparin Sodium (Porcine) (Heparin Sq) 5,000 unit Q8HRS SQ Last administered on 04/26/17 05:37; Start 04/25/17 at 14:00 Furosemide (Lasix) 40 mg BID94 IVP Last administered on 04/26/17 09:47; Start 04/26/17 at 09:00 Furosemide (Lasix) 40 mg 1X ONCE IVP Last administered on 04/25/17 17:21; Start 04/25/17 at 17:30; Stop 04/25/17 at 17:31; Status DC Active Scripts Active Metoprolol Tartrate 50 Mg Tablet 1 Tab PO BID Aspir 81 (Aspirin) 81 Mg Tablet.dr 1 Tab PO DAILY Lisinopril 5 Mg Tablet 1 Tab PO DAILY Amiodarone Hcl 200 Mg Tablet 1 Tab PO BID Lipitor (Atorvastatin Calcium) 10 Mg Tablet 1 Tab PO QHS Isosorbide Mononitrate Er (Isosorbide Mononitrate) 60 Mg Tab.er.24h 1 Tab PO DAILY Lasix (Furosemide) 40 Mg Tablet 1 Tab PO DAILY Vitals/I & O Vital Sign - Last 24 Hours 04/25/17 04/25/17 04/25/17 04/25/17 13:39 15:15 16:57 19:35 Temp 98.0 97.5 98.0 97.5 Pulse 64 68 Resp 24 20 B/P (MAP) 123/85 (98) 118/77 (91) Pulse Ox 97 99 97 98 O2 Delivery Room Air Room Air Room Air Room Air 04/25/17 04/25/17 04/25/17 04/25/17 19:38 20:00 21:31 23:30 Temp 97.8 97.8 Pulse 68 68 Resp 18 B/P (MAP) 118/77 141/102 (115) Pulse Ox 98 98 O2 Delivery Room Air Room Air Room Air O2 Flow Rate 2.0 04/26/17 04/26/17 04/26/17 04/26/17 00:40 03:15 07:00 07:42 Temp 97.7 97.5 97.7 97.5 Pulse 63 68 Resp 18 18 B/P (MAP) 130/93 (105) 139/89 (106) 135/91 (106) Pulse Ox 99 95 97 O2 Delivery Room Air Room Air Room Air 04/26/17 04/26/17 04/26/17 04/26/17 08:00 09:47 09:48 09:49 Pulse 68 68 68 B/P (MAP) 135/91 135/91 135/91 O2 Delivery Room Air 04/26/17 04/26/17 04/26/17 09:49 11:00 11:34 Temp 97.9 97.9 Pulse 68 63 Resp 18 B/P (MAP) 135/91 116/81 (93) Pulse Ox 100 97 O2 Delivery Room Air Room Air LISSETT GUEVARA MD Apr 26, 2017 12:27
--- NOTE | 2017-04-26 15:06 | PDOC ---
JOSE LÓPEZ BACTERIOLOGY PROFESSOR 04/26/17 1506: CARDIO Progress Notes Date and Time Date of Service 04/26/2017 Time of Evaluation 1430 Subjective Subjective: No Chest Pain, No shortness of breath, No Palpitations, Other ( fells much better today, laying flat and no SOA) Vitals Vitals Vital Signs Date Time Temp Pulse Resp B/P (MAP) Pulse Ox O2 Delivery O2 Flow Rate FiO2 04/26/17 14:59 97.8 57 18 105/69 (81) 95 Room Air 97.8 04/26/17 13:55 2.0 Weight Weight [ ] Input and Output Intake and Output Intake and Output 04/27/17 07:00 Intake Total 250 ml Balance 250 ml Intake Oral 250 ml Laboratory Labs Laboratory Tests Test 04/26/17 04:31 White Blood Count 3.8 x10^3/uL (4.0-11.0) Red Blood Count 4.51 x10^6/uL (4.30-5.70) Hemoglobin 12.2 g/dL (13.0-17.5) Hematocrit 36.5 % (39.0-53.0) Mean Corpuscular Volume 81 fL (79-100) Mean Corpuscular Hemoglobin 27 pg (25-35) Mean Corpuscular Hemoglobin Concent 33 g/dL (31-37) Red Cell Distribution Width 15.7 % (11.5-14.5) Platelet Count 127 x10^3/uL (140-400) Neutrophils (%) (Auto) 51 % (31-73) Lymphocytes (%) (Auto) 39 % (24-48) Monocytes (%) (Auto) 6 % (0-9) Eosinophils (%) (Auto) 3 % (0-3) Basophils (%) (Auto) 1 % (0-3) Neutrophils # (Auto) 2.0 x10^3uL (1.8-7.7) Lymphocytes # (Auto) 1.5 x10^3/uL (1.0-4.8) Monocytes # (Auto) 0.2 x10^3/uL (0.0-1.1) Eosinophils # (Auto) 0.1 x10^3/uL (0.0-0.7) Basophils # (Auto) 0.0 x10^3/uL (0.0-0.2) Sodium Level 139 mmol/L (136-145) Potassium Level 3.9 mmol/L (3.5-5.1) Chloride Level 104 mmol/L (98-107) Carbon Dioxide Level 26 mmol/L (21-32) Anion Gap 9 (6-14) Blood Urea Nitrogen 29 mg/dL (8-26) Creatinine 1.5 mg/dL (0.7-1.3) Estimated GFR (Cockcroft-Gault) 58.0 Glucose Level 77 mg/dL (70-99) Calcium Level 8.6 mg/dL (8.5-10.1) Microbiology Micro Microbiology 04/21/17 Blood Culture - Final, Complete NO GROWTH AFTER 5 DAYS Physical Exam HEENT: Neck Supple W Full Motion Chest: Symmetric LUNGS: Other (bibasilar crackles) Heart: S1S2, RRR (SR), murmurs (2/6 systolic murmur ) Abdomen: Soft N/T Extremities: Other (2+ bilateral LE edema ) Neurology: alert, oriented, follow commands Assessment Assessment 1. Acute on chronic systolic CHF; very good diurese. appears compensated now. 2. CAD with LM involvement 3. ICM: EF 10-15% 4. COPD/severe pulmonary HTN 5. CKD3 Recommendations 1. Continue with lasix and milrinone 2. Daily wt, 2L FR, strict I & O 3. Replace K and Mg with goal at least 4.0 and 2.0 respectively 4. BB and amiodarone. 5. If CHF becomes refractory then will consider for LHC. JADE WATSON MD 04/26/17 8908: CARDIO Progress Notes Plan Plan Pt. seen and examined. Agree with above BONE DENSITY TECHNICIAN note. He has really done well with ionotropic support Will continue diuresis for one more day. Then anticipate DC tomorrow. I again discussed need for oil heaterman medication compliance. JOSE LÓPEZ APRN Apr 26, 2017 15:06 JADE WATSON MD Apr 26, 2017 17:18
[2017-04-26] MEDS: MILRINONE 20MG/100ML PREMIX 100 ML IV PRN (15:40)
[2017-04-26] MEDS: ATORVASTATIN CALCIUM 10 MG TABLET. PO SCH (21:15)
[2017-04-27 03:20] VITALS: BP 116/72
[2017-04-27] MEDS: HEPARIN PF for SUB-Q USE 5,000 UNIT/0.5 ML VIAL. SQ SCH ×2 (06:26→15:34)
[2017-04-27 06:56] LABS: BASO % 1 % (0-3); EOS % 4 % (0-3); HEMATOCRIT 37.3 % (39.0-53.0); HEMOGLOBIN 12.2 g/dL (13.0-17.5); LYMPH # 1.6 x10^3/uL (1.0-4.8); LYMPH % 41 % (24-48); MEAN CORPUSCULAR HEMOGLOBIN 27 pg (25-35); MEAN CORPUSCULAR HGB CONC 33 g/dL (31-37); MEAN CORPUSCULAR VOLUME 82 fL (79-100); MONO % 8 % (0-9); NEUT % 47 % (31-73); PLATELET COUNT 141 x10^3/uL (140-400); RED BLOOD COUNT 4.55 x10^6/uL (4.30-5.70); WHITE BLOOD COUNT 3.9 x10^3/uL (4.0-11.0)
[2017-04-27 07:00] VITALS: BP 139/94
[2017-04-27] MEDS: IPRATRPIUM/ALBUTEROL 0.5/2.5MG 3 ML NEBU. NEB SCH ×3 (07:21→15:34)
[2017-04-27 07:22] LABS: CALCIUM 8.5 mg/dL (8.5-10.1); CREATININE 1.5 mg/dL (0.7-1.3); POTASSIUM 4.3 mmol/L (3.5-5.1)
[2017-04-27] MEDS: LISINOPRIL 10 MG TABLET PO SCH (09:28)
[2017-04-27] MEDS: FUROSEMIDE 40 MG/4 ML VIAL. IVP SCH (09:28)
[2017-04-27] MEDS: ASPIRIN ENTERIC COATED 81 MG TABLET.DR. PO SCH (09:29)
[2017-04-27] MEDS: ISOSORBIDE MONONITRATE ER 30 MG TAB.ER.24H PO SCH (09:29)
[2017-04-27] MEDS: AMIODARONE HCL 200 MG TABLET. PO SCH (09:29)
[2017-04-27] MEDS: METOPROLOL TART IMMED RELEASE 50 MG TABLET. PO SCH (09:30)
[2017-04-27 11:00] VITALS: BP 110/71
--- NOTE | 2017-04-27 11:24 | PDOC ---
JOSE LÓPEZ OPERATING SYSTEMS SPECIALIST 04/27/17 1124: CARDIO Progress Notes Date and Time Date of Service 04/27/2017 Time of Evaluation 1115 Subjective Subjective: No Chest Pain, No shortness of breath, No Palpitations Vitals Vitals Vital Signs Date Time Temp Pulse Resp B/P (MAP) Pulse Ox O2 Delivery O2 Flow Rate FiO2 04/27/17 11:11 98 Room Air 04/27/17 09:30 67 139/94 04/27/17 07:00 98.4 18 98.4 04/26/17 13:55 2.0 Weight Weight [ ] Input and Output Intake and Output Intake and Output 04/28/17 07:00 Intake Total 300 ml Output Total 200 ml Balance 100 ml Intake Oral 300 ml Output Urine Total 200 ml Laboratory Labs Laboratory Tests Test 04/27/17 05:50 White Blood Count 3.9 x10^3/uL (4.0-11.0) Red Blood Count 4.55 x10^6/uL (4.30-5.70) Hemoglobin 12.2 g/dL (13.0-17.5) Hematocrit 37.3 % (39.0-53.0) Mean Corpuscular Volume 82 fL (79-100) Mean Corpuscular Hemoglobin 27 pg (25-35) Mean Corpuscular Hemoglobin Concent 33 g/dL (31-37) Red Cell Distribution Width 16.0 % (11.5-14.5) Platelet Count 141 x10^3/uL (140-400) Neutrophils (%) (Auto) 47 % (31-73) Lymphocytes (%) (Auto) 41 % (24-48) Monocytes (%) (Auto) 8 % (0-9) Eosinophils (%) (Auto) 4 % (0-3) Basophils (%) (Auto) 1 % (0-3) Neutrophils # (Auto) 1.8 x10^3uL (1.8-7.7) Lymphocytes # (Auto) 1.6 x10^3/uL (1.0-4.8) Monocytes # (Auto) 0.3 x10^3/uL (0.0-1.1) Eosinophils # (Auto) 0.1 x10^3/uL (0.0-0.7) Basophils # (Auto) 0.0 x10^3/uL (0.0-0.2) Sodium Level 140 mmol/L (136-145) Potassium Level 4.3 mmol/L (3.5-5.1) Chloride Level 104 mmol/L (98-107) Carbon Dioxide Level 29 mmol/L (21-32) Anion Gap 7 (6-14) Blood Urea Nitrogen 23 mg/dL (8-26) Creatinine 1.5 mg/dL (0.7-1.3) Estimated GFR (Cockcroft-Gault) 58.0 Glucose Level 75 mg/dL (70-99) Calcium Level 8.5 mg/dL (8.5-10.1) Microbiology Micro Microbiology 04/21/17 Blood Culture - Final, Complete NO GROWTH AFTER 5 DAYS Physical Exam HEENT: Neck Supple W Full Motion Chest: Symmetric LUNGS: Other (bibasilar crackles) Heart: S1S2, RRR (SR no significnat ectopies), murmurs (2/6 systolic murmur ) Abdomen: Soft N/T Extremities: Other (2+ bilateral LE edema ) Neurology: alert, oriented, follow commands Assessment Assessment 1. Acute on chronic systolic CHF: compensated 2. CAD with LM involvement: Remains CP free. 3. ICM: EF 10-15% 4. COPD/severe pulmonary HTN 5. CKD3 6. Noncompliance: due to financial constraints. Recommendations 1. Stop Milrinone. Change lasix to PO and will add zaroxylyn 2. Encouraged home BP monitoring. Daily wt, 2L FR, strict I & O. Discussed CHF symptoms and number parameters fo the latter. Discussed with staff to further education. 3. Continue with BB and amiodarone. Will need to tailor made rest of meds to [facility] 4$ Rx. Would prefer to add plavix if pt is able to afford (Rx provided) . Provided with Good Rx. 4. Discussed med compliance and office follow up and reeval as an outpt. . JADE WATSON MD 04/27/17 [id number]: CARDIO Progress Notes Plan Plan Patient seen and examined. Agree with above nurse practitioner note. Decrease and turn off milrinone. Supportive care. Home meds as noted above. JOSE LÓPEZ APRN Apr 27, 2017 11:24 JADE WATSON MD Apr 27, 2017 17:02
[2017-04-27] MEDS ORDERED: metOLazone 2.5 MG TABLET PO SCH (12:00)
[2017-04-27] MEDS ORDERED: METO2.5T PO (13:07)
[2017-04-27] MEDS ORDERED: ISOS30TA4 PO (13:07)
[2017-04-27] MEDS ORDERED: LISI10TA2 PO (13:07)
[2017-04-27] MEDS ORDERED: FURO40TA4 PO (13:07)
--- NOTE | 2017-04-27 13:16 | PDOC3 ---
Discharge Summary [facility] Date of Admission: Apr 21, 2017 Discharge Date: Apr 27, 2017 Admitting Diagnosis 1. CHF exacerbation 2. Leg edema from CHF 3. recent CVA in MRI 4. Acute on chronic systolic heart failure: LVEF 10-15%, in February 2017 5. CAD/NSTEMI 6 HTN 7. COPD/severe pulmonary HTN/tobaccoism: 8. CKD3 MARILYN ,vasomotor Problems: Final Diagnosis CONSULTS card Brief Hospital Course Mr. Lo is a 57 old M, who had echo showed EF 10-15% last month, could not do CABG or cath with impella due to insurance issues. pt feels better with milrinone and amiodarone, and lasix here. dc home with lasix bid and other new meds see MARS. and plavix as per card. dc time 35min General: Alert, Oriented X3, Cooperative Heart: Regular rate, Normal S1, Normal S2, Other Lungs: Clear Abdomen: Soft, No tenderness Extremities: No clubbing, Other (1- 2+ pitting edema) Skin: No breakdown, No significant lesion Problems: Disposition home CONDITION AT DISCHARGE: Improved, Stable Diet cardiac Scheduled Amiodarone Hcl (Amiodarone Hcl), 1 TAB PO BID Aspirin (Aspir 81), 1 TAB PO DAILY Atorvastatin Calcium (Lipitor), 1 TAB PO QHS Furosemide (Lasix), 1 TAB PO DAILY Isosorbide Mononitrate (Isosorbide Mononitrate Er), 1 TAB PO DAILY Lisinopril (Lisinopril), 1 TAB PO DAILY Metoprolol Tartrate (Metoprolol Tartrate), 1 TAB PO BID Follow Up fu with card in 2 weeks LISSETT GUEVARA MD Apr 27, 2017 13:16
[2017-04-27] MEDS ORDERED: POTA20TA4 PO (13:17)
[2017-04-27 15:00] VITALS: BP 119/79
[2017-04-27] MEDS ORDERED: CLOPIDOGREL BISULFATE 75 MG TABLET PO ONE (15:15)
[2017-04-27] MEDS ORDERED: FUROSEMIDE 40 MG TABLET. PO SCH (16:00)
[2017-04-27] MEDS ORDERED: CLOP75TA57 PO (19:43)
[2017-04-28] MEDS ORDERED: POTASSIUM CHLORIDE 20 MEQ TABLET.ER. PO SCH (08:00)
== END 2017-04-27 19:00 | disposition home or self-care (01) | DRG 280 ==
LOC: ER 07:47 → 2 SOUTH 09:43
PROVIDERS: ADMIT Internal Medicine; ATTEND Internal Medicine
DX: I21.4 Non-ST elevation (NSTEMI) myocardial infarction (principal); N17.0 Acute kidney failure with tubular necrosis; I50.23 Acute on chronic systolic (congestive) heart failure; I13.0 Hypertensive heart and chronic kidney disease with heart failure and stage 1 through stage 4 chronic kidney disease, or unspecified chronic kidney disease; I42.9 Cardiomyopathy, unspecified; E78.00 Pure hypercholesterolemia, unspecified; F17.200 Nicotine dependence, unspecified, uncomplicated; I25.10 Atherosclerotic heart disease of native coronary artery without angina pectoris; J44.9 Chronic obstructive pulmonary disease, unspecified; N18.3 Chronic kidney disease, stage 3 (moderate); Z82.3 Family history of stroke; Z82.49 Family history of ischemic heart disease and other diseases of the circulatory system; Z86.73 Personal history of transient ischemic attack (TIA), and cerebral infarction without residual deficits; Z91.19 Patient's noncompliance with other medical treatment and regimen
CPT/HCPCS: 36415; 36600; 71010; 78582; 80048; 80053; 80307; 81001; 82553; 82805; 83605; 83690; 83735; 83880; 84443; 84484; 85025; 85379; 85610; 87040; 93005; 94250; 94640; 94760; 96374; A9540; A9558; G0480; J1940; J2260; J7620; 99285-25; G0479

== ENCOUNTER 2017-04-29 09:50 | Inpatient (IN) | payer SELFPAY ==
[~2017-04-29] VITALS: Ht 177.8 cm; Wt 83.0 kg
[~2017-04-29 09:50] MED LIST changes: +CLOP75TA57 PO; +FURO40TA4 PO; +ISOS30TA4 PO; +LISI10TA2 PO; +METO2.5T PO; +METO50TA2 PO; -METO50TA6 PO; +POTA20TA4 PO
--- NOTE | 2017-04-29 10:08 | RAD ---
CT head Indication: Unresponsive, altered mental status Technique: CT head without IV contrast Comparison: Previous CT head from 03/22/2017 Findings: No pathologic extra-axial or intra-axial fluid collection. The ventricles and basal cisterns are within normal limits. No acute intracranial bleed. Stable periventricular low-attenuation of the white matter noted along the frontal horns of the lateral ventricles. There is no focal loss of aguila-white differentiation. The orbits are within normal limits. No midline shift. Metallic densities seen in the left frontoparietal scalp soft tissue. No calvarial lesions. Visualized paranasal sinuses and mastoid air cells are clear. Impression: 1. No acute intracranial process on this noncontrast CT. If concern for acute ischemic stroke is high, please consider MRI brain. 2. White matter changes most likely secondary to sequela of chronic ischemic microscrew disease. PQRS Compliance Statement: One or more of the following individualized dose reduction techniques were utilized for this examination: 1. Automated exposure control 2. Adjustment of the mA and/or kV according to patient size 3. Use of iterative reconstruction technique
--- NOTE | 2017-04-29 10:09 | EKG ---
[facility] [address] [place] [address] Test Date: 2017-04-29 Test Time: 10:06:09 Pat Name: ABUNDIO ALLEN Department: Room: Gender: Carpenter Ship: : 1960 Requested By: MILANA GARCIA Order Number: [id number] Reading MD: Measurements Intervals H[place]ed Rate: 111 P: -13 WI: 128 QRS: -2 QRSD: 124 T: 152 QT: 340 QTc: 466 Interpretive Statements SINUS TACHYCARDIA LEFT ATRIAL ABNORMALITY LEFTWARD AXIS QRS(T) CONTOUR ABNORMALITY CONSISTENT WITH ANTEROSEPTAL INFARCT PROBABLY OLD ST ABNORMALITY, POSSIBLE ANTEROLATERAL SUBENDOCARDIAL INJURY RI6.01 Unconfirmed report No previous ECG available for comparison
[2017-04-29 10:10] LABS: HEMATOCRIT 44.1 % (39.0-53.0); HEMOGLOBIN 14.4 g/dL (13.0-17.5); RED BLOOD COUNT 5.42 x10^6/uL (4.30-5.70); RED CELL DISTRIBUTION WIDTH 16.1 % (11.5-14.5); WHITE BLOOD COUNT 5.8 x10^3/uL (4.0-11.0)
[2017-04-29 10:21] LABS: INR 1.1 (0.8-1.1); PROTHROMBIN TIME PATIENT 13.5 SEC (11.7-14.0)
[2017-04-29 10:26] LABS: CALCIUM 8.8 mg/dL (8.5-10.1); CREATININE 1.2 mg/dL (0.7-1.3); POTASSIUM 4.9 mmol/L (3.5-5.1)
[2017-04-29] MEDS ORDERED: NITROGLYCERIN PREMIX 250 ML IV ONE (10:30)
[2017-04-29] MEDS ORDERED: NITROGLYCERIN OINT 1 GM PACKET. TP ONE (10:30)
[2017-04-29 10:35] LABS: HCO3 ABG 27 mmol/L (21-28); PCO2 ABG 48 mmHg (35-46); PH ABG 7.37 (7.35-7.45); PO2 ABG 71 mmHg (65-108); SAT O2 ABG 92 % (92-99)
[2017-04-29 10:37] LABS: FIO2 ABG 30%
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
[2017-04-29 10:50] LABS: POTASSIUM ISTAT 4.6 mmol/L (3.5-5.0)
[2017-04-29] MEDS ORDERED: IOHEXOL 350 MG/ML 100 ML VIAL. IV ONE (11:30)
[2017-04-29] MEDS ORDERED: CONTRAST GIVEN MC PRN (11:30)
[2017-04-29 11:33] VITALS: BP 166/119
[2017-04-29] MEDS ORDERED: ASPIRIN 325 MG TABLET PO ONE (12:30)
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
[2017-04-29] MEDS ORDERED: ASPIRIN 300 MG SUPP.RECT PR SCH (12:38)
--- NOTE | 2017-04-29 12:44 | PDOC1 ---
History and Physical Date of Admission Date of Admission DATE: 04/29/17 TIME: 12:32 Identification/Chief Complaint Chief Complaint acute change in MS at 9 AM today Problems: Source Source: Caregiver, Chart review History of Present Illness History of Present Illness 57 y.o AA male whom I just dcd 2 days ago for severe ICM with EF 10-15%, was on ASA 81 and plavix 75. As per RN last admit he was self pay so plavix might have been an issue, In any case, he was A and O x 3 moves all 4 ext until 9 AM today at the [employer] [facility], sudden dec in MS, slumped down, Went to ER, At ER could not move all 4 ext, Code stroke was cancelled but NEuro Dr. Mullins was consulted and agreed with CTA order - BP was high, ruling out dissection etc. CArds had plans of cardiac cath urgently from ER as we were unsure if this was all cardiac given his signif cardiac hx, BUt at ICU, clearly he can move RT arm spontaneously but the lEFT arm slumps dowm, CAnt speak, wake sup but drowsy, STILL IN THE WINDOW FOR TPA, I did ask to call CODE STROKE. That was called. I did review past records, indeed had some subacute to acute CVA left frontal on 03/22 brain MRI Dw Venita Mendoza of neuro, CI to TPA if recent stroke as high chance of bleeding - Dw DTR and whole ICU TEAM Will order stat MRI, LIpids was just check 2 mos ago, ok CArotids checed 2 mos ago - some plaques but none obstructing,. In the light of clinically new stroke, will re do,. Systolic 160s, WILL ALLOW PERMISSIVE HTN IN THIS CLINICALLY ACUTE CVA I was called in STAT to ICU for the above issues, CC 45 mins cumulative Past Medical History Cardiovascular: CAD, CHF, HTN, [place] Pulmonary: Bronchitis, COPD CENTRAL NERVOUS SYSTEM: CVA GI: No pertinent hx Heme/Onc: No pertinent hx Hepatobiliary: No pertinent hx Psych: No pertinent hx Rheumatologic: No pertinent hx Infectious disease: No pertinent hx Renal/: No pertinent hx Endocrine: No pertinent hx Past Surgical History Past Surgical History: Other Family History Family History: Coronary Artery Disease, Stroke Social History Smoke: No ALCOHOL: none Drugs: Marijuana Current Problem List Problem List Problems Medical Problems: (1) Elevated troponin Status: Acute Problems: Current Medications Current Medications Current Medications Nitroglycerin (Nitro-Bid Oint) 1 inch 1X ONCE TP Last administered on 10:20; Start 04/29/17 at 10:30; Stop 04/29/17 at 10:31; Status DC Nitroglycerin/ Dextrose 250 ml @ 0 mls/hr 1X ONCE IV Last administered on 04/29 10:32; Start 04/29/17 at 10:30; Stop 04/29/17 at 10:31; Status DC Iohexol (Omnipaque 350 Mg/ml) 90 ml 1X ONCE IV Last administered on 04/29/17 11:39; Start 04/29/17 at 11:30; Stop 04/29/17 at 11:31; Status DC Info (Do NOT chart on this entry -- for MONITORING) 1 each PRN DAILY PRN MC SEE COMMENTS; Start 04/29/17 at 11:30; Stop 05/01/17 at 11:29 Aspirin (Aspirin) 300 mg DAILY MI ; Start 05/21/17 at 09:00; Status UNV Aspirin (Fernando Aspirin) 325 mg 1X ONCE PO ; Start 04/29/17 at 12:30; Stop 04/29 at 12:31; Status UNV Famotidine (Pepcid) 20 mg QHS IVP ; Start 04/29/17 at 21:00; Status UNV Enoxaparin Sodium (Lovenox 40mg Syringe) 40 mg Q24H SQ ; Start 04/29/17 at 12:30 ; Status UNV Amino Acids/ Glycerin/ Electrolytes 1,000 ml @ 80 mls/hr [id number] IV ; Start at 12:30; Status UNV Active Scripts Active Klor-Con M20 (Potassium Chloride) 20 Meq Tab.er.prt 20 Meq PO [id number] 30 Days Metolazone 2.5 Mg Tablet 2.5 Mg PO DAILY 30 Days Lisinopril 10 Mg Tablet 10 Mg PO DAILY 30 Days Isosorbide Mononitrate Er (Isosorbide Mononitrate) 30 Mg Tab.er.24h 30 Mg PO DAILY 30 Days Furosemide 40 Mg Tablet 40 Mg PO BID94 30 Days Metoprolol Tartrate 50 Mg Tablet 1 Tab PO BID Aspir 81 (Aspirin) 81 Mg Tablet.dr 1 Tab PO DAILY Amiodarone Hcl 200 Mg Tablet 1 Tab PO BID Reported Plavix (Clopidogrel Bisulfate) 75 Mg Tablet 1 Tab PO DAILY Allergies Allergies: Coded Allergies: codeine (Verified Allergy, Intermediate, 04/21/17) ROS Review of System dec mentation nut protecting airway Physical Exam General: No acute distress, Other (drowsy, moves his left arm and legs, RT arm is flaccid) Lungs: Clear to auscultation, Normal air movement Heart: S1S2, no thrills, no rubs, other (sinus tachy low 100s) Male Genitals Exam: normal genitalia, normal prostate Rectal Exam: not examined PELVIC: Nml ext genitalia Skin: No rashes, No breakdown, No significant lesion Neuro: Reflexes 2+, Other (0/5 on T UE, 5/5 on Left UE, 4/5 on both legs, DTR 2 , drowsy but not in distress, unable to hear speech) Psych/Mental Status: Other (drowsy) Vitals Vitals Vital Signs Date Time Temp Pulse Resp B/P (MAP) Pulse Ox O2 Delivery O2 Flow Rate FiO2 04/29/17 11:33 104 04/29/17 11:23 91 04/29/17 10:20 171/125 04/29/17 10:15 98.1 16 Room Air 98.1 Labs Labs Laboratory Tests Test 04/29/17 10:00 04/29/17 10:05 04/29/17 10:15 04/29/17 10:37 White Blood Count 5.8 x10^3/uL (4.0-11.0) Red Blood Count 5.42 x10^6/uL (4.30-5.70) Hemoglobin 14.4 g/dL (13.0-17.5) Hematocrit 44.1 % (39.0-53.0) Mean Corpuscular Volume 81 fL (79-100) Mean Corpuscular Hemoglobin 27 pg (25-35) Mean Corpuscular Hemoglobin Concent 33 g/dL (31-37) Red Cell Distribution Width 16.1 % (11.5-14.5) Platelet Count 188 x10^3/uL (140-400) Prothrombin Time 13.5 SEC (11.7-14.0) Prothromb Time International Ratio 1.1 (0.8-1.1) Activated Partial Thromboplast Time 22 SEC (24-38) Sodium Level 136 mmol/L (136-145) Potassium Level 4.9 mmol/L (3.5-5.1) Chloride Level 102 mmol/L (98-107) Carbon Dioxide Level 28 mmol/L (21-32) Anion Gap 6 (6-14) Blood Urea Nitrogen 18 mg/dL (8-26) Creatinine 1.2 mg/dL (0.7-1.3) Estimated GFR (Cockcroft-Gault) 75.0 Glucose Level 109 mg/dL (70-99) Calcium Level 8.8 mg/dL (8.5-10.1) Troponin I Quantitative 1.875 ng/mL (0.000-0.055) Glucose (Fingerstick) 117 mg/dL (70-99) O2 Saturation 92 % (92-99) Arterial Blood pH 7.37 (7.35-7.45) Arterial Blood pCO2 at Patient Temp 48 mmHg (35-46) Arterial Blood pO2 at Patient Temp 71 mmHg (65-108) Arterial Blood HCO3 27 mmol/L (21-28) Arterial Blood Base Excess 1 mmol/L (-3-3) FiO2 30% Bedside Troponin I 0.46 ng/ml (<0.08) Test 04/29/17 10:44 Bedside Hemoglobin 15.6 g/dL (14-18) Bedside Hematocrit 46 % (37-52) Bedside Sodium 135 mmol/L (135-145) Bedside Potassium 4.6 mmol/L (3.5-5.0) Bedside Chloride 102 mmol/L (98-110) Bedside Total CO2 24 mmol/L (23-32) Anion Gap 14 mmol/L (6-14) Bedside Blood Urea Nitrogen 21 mg/dL (8-26) Bedside Creatinine 1.2 mg/dL (0.5-1.4) Glucose Level 128 mg/dL (70-99) Bedside Ionized Calcium (Erin) 0.95 mmol/L (1.13-1.32) Laboratory Tests Test 04/29/17 10:00 04/29/17 10:05 04/29/17 10:15 04/29/17 10:37 White Blood Count 5.8 x10^3/uL (4.0-11.0) Red Blood Count 5.42 x10^6/uL (4.30-5.70) Hemoglobin 14.4 g/dL (13.0-17.5) Hematocrit 44.1 % (39.0-53.0) Mean Corpuscular Volume 81 fL (79-100) Mean Corpuscular Hemoglobin 27 pg (25-35) Mean Corpuscular Hemoglobin Concent 33 g/dL (31-37) Red Cell Distribution Width 16.1 % (11.5-14.5) Platelet Count 188 x10^3/uL (140-400) Prothrombin Time 13.5 SEC (11.7-14.0) Prothromb Time International Ratio 1.1 (0.8-1.1) Activated Partial Thromboplast Time 22 SEC (24-38) Sodium Level 136 mmol/L (136-145) Potassium Level 4.9 mmol/L (3.5-5.1) Chloride Level 102 mmol/L (98-107) Carbon Dioxide Level 28 mmol/L (21-32) Anion Gap 6 (6-14) Blood Urea Nitrogen 18 mg/dL (8-26) Creatinine 1.2 mg/dL (0.7-1.3) Estimated GFR (Cockcroft-Gault) 75.0 Glucose Level 109 mg/dL (70-99) Calcium Level 8.8 mg/dL (8.5-10.1) Troponin I Quantitative 1.875 ng/mL (0.000-0.055) Glucose (Fingerstick) 117 mg/dL (70-99) O2 Saturation 92 % (92-99) Arterial Blood pH 7.37 (7.35-7.45) Arterial Blood pCO2 at Patient Temp 48 mmHg (35-46) Arterial Blood pO2 at Patient Temp 71 mmHg (65-108) Arterial Blood HCO3 27 mmol/L (21-28) Arterial Blood Base Excess 1 mmol/L (-3-3) FiO2 30% Bedside Troponin I 0.46 ng/ml (<0.08) Test 04/29/17 10:44 Bedside Hemoglobin 15.6 g/dL (14-18) Bedside Hematocrit 46 % (37-52) Bedside Sodium 135 mmol/L (135-145) Bedside Potassium 4.6 mmol/L (3.5-5.0) Bedside Chloride 102 mmol/L (98-110) Bedside Total CO2 24 mmol/L (23-32) Anion Gap 14 mmol/L (6-14) Bedside Blood Urea Nitrogen 21 mg/dL (8-26) Bedside Creatinine 1.2 mg/dL (0.5-1.4) Glucose Level 128 mg/dL (70-99) Bedside Ionized Calcium (Erin) 0.95 mmol/L (1.13-1.32) VTE Prophylaxis Ordered VTE Prophylaxis Devices: Yes VTE Pharmacological Prophylaxi: Yes Assessment/Plan Assessment/Plan 1. Acute RT UE weakness, possibilty acute CVA, JASMEET to MCA territory - STAT BRAIN MRI, ASA per rectum now, STROKE protocol, ICU Admit. HAS A CONTRAINDICATION to THROMBOLYSIS GIVEN RECENT ACUTE TO SUBACUTE SMALL INFARCTS LEFT FRONTO PARIETAL LOBES (03/22 imaging). 2. SEVERE CM EF 10-15 % - will defer if rpt echo needs to be done; rpt carotids given new stroke clinically 3. Troponin leak - per cards 4. HTN, malignancy POA, better - NOW SYSTOLIC 160s, would allow permissive hTN, prns only if systolic > 180s to allow perfusion 5. 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 PT.OT Rpt carotids MRI stat now dry Will defer rpt echo from cards - had one within last 3 mos? NOt TPA candidate ICU admit CC 45 mins cumulative BARBARA FERNANDES MD Apr 29, 2017 12:44
[2017-04-29] MEDS ORDERED: ONDANSETRON PF 4 MG/2 ML VIAL. IV PRN (12:45)
[2017-04-29] MEDS ORDERED: ACETAMINOPHEN 325 MG SUPP.RECT. PR PRN (12:45)
[2017-04-29] MEDS ORDERED: LABETALOL 20 MG/4 ML DISP.SYRIN. IVP PRN (12:45)
[2017-04-29] MEDS ORDERED: AMINO AC 3%/ELECTROLYTE/GLYCER 1,000 ML IV SCH (13:00)
[2017-04-29] MEDS ORDERED: ENOXAPARIN 40 MG/0.4 ML SYRINGE. SQ SCH (13:00)
--- NOTE | 2017-04-29 14:07 | RAD ---
EXAMINATION: Magnetic resonance imaging (MRI) of the brain and brainstem without contrast 04/29/2017 12:24 PM HISTORY: Right-sided weakness, nonverbal and altered mental status. TECHNIQUE: Multiplanar multi-weighted MRI of the brain and brainstem was performed without intravenous contrast using the general brain protocol. COMPARISON: None available. FINDINGS: There is diffusion signal hyperintensity with corresponding low signal on ADC maps involving the entire left frontal lobe, sparing the superior right frontal gyrus. There is involvement of the left basal ganglia, insula and left temporal lobe. Portions of the left parietal lobe are spared. There is involvement of both left and right inferior frontal gyri. There is no significant corresponding T2/FLAIR signal hyperintensity suggestive of an acute infarct. There is loss of the vascular flow void involving the left internal carotid artery from the skull base. The left A1 segment of anterior cerebral artery flow void is also not well identified. The scalp and calvarium are normal. The superior sagittal sinus demonstrates normal venous flow. The corpus callosum is normal in shape and signal intensity. The posterior fossa is unremarkable. The pituitary and sella are normal. Brainstem is normal in appearance. The susceptibility weighted sequences reveal no evidence of acute or chronic hemorrhage. The ventricles are normal in size and position without evidence of hydrocephalus. There is a tiny mucus retention cyst left maxillary sinus. The visualized portions of the mastoids are unremarkable. The orbits appear normal. Normal flow voids are demonstrated in the carotid arteries and basilar artery. 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 No significant cytotoxic edema or mass effect is identified at this time. However, given the large territory of suspected infarction, short-term follow-up head CT is recommended to evaluate for developing edema/shift. No acute intracranial hemorrhage is identified. Critical results were discussed with Tamiko in the intensive care unit at 1:45 PM on 04/29/2017. Electronically signed by: Geena Silva MD (04/29/2017 2:04 PM) [id number]
--- NOTE | 2017-04-29 14:14 | PDOC3 ---
Discharge Summary Visit Information Date of Admission: Apr 29, 2017 Date of Discharge: Apr 29, 2017 Final Diagnosis Problems Medical Problems: (1) Elevated troponin Status: Acute Brief Hospital Course Allergies Allergies Coded Allergies Type Severity Reaction Last Updated Verified codeine Allergy Intermediate 04/21/17 Yes Vital Signs Vital Signs Date Time Temp Pulse Resp B/P (MAP) Pulse Ox O2 Delivery O2 Flow Rate FiO2 04/29/17 11:33 104 04/29/17 11:23 91 04/29/17 10:20 171/125 04/29/17 10:15 98.1 16 Room Air 98.1 Lab Results Laboratory Tests Test 04/29/17 10:00 04/29/17 10:05 04/29/17 10:15 04/29/17 10:37 White Blood Count 5.8 x10^3/uL (4.0-11.0) Red Blood Count 5.42 x10^6/uL (4.30-5.70) Hemoglobin 14.4 g/dL (13.0-17.5) Hematocrit 44.1 % (39.0-53.0) Mean Corpuscular Volume 81 fL (79-100) Mean Corpuscular Hemoglobin 27 pg (25-35) Mean Corpuscular Hemoglobin Concent 33 g/dL (31-37) Red Cell Distribution Width 16.1 % (11.5-14.5) Platelet Count 188 x10^3/uL (140-400) Prothrombin Time 13.5 SEC (11.7-14.0) Prothromb Time International Ratio 1.1 (0.8-1.1) Activated Partial Thromboplast Time 22 SEC (24-38) Sodium Level 136 mmol/L (136-145) Potassium Level 4.9 mmol/L (3.5-5.1) Chloride Level 102 mmol/L (98-107) Carbon Dioxide Level 28 mmol/L (21-32) Anion Gap 6 (6-14) Blood Urea Nitrogen 18 mg/dL (8-26) Creatinine 1.2 mg/dL (0.7-1.3) Estimated GFR (Cockcroft-Gault) 75.0 Glucose Level 109 mg/dL (70-99) Calcium Level 8.8 mg/dL (8.5-10.1) Troponin I Quantitative 1.875 ng/mL (0.000-0.055) Glucose (Fingerstick) 117 mg/dL (70-99) O2 Saturation 92 % (92-99) Arterial Blood pH 7.37 (7.35-7.45) Arterial Blood pCO2 at Patient Temp 48 mmHg (35-46) Arterial Blood pO2 at Patient Temp 71 mmHg (65-108) Arterial Blood HCO3 27 mmol/L (21-28) Arterial Blood Base Excess 1 mmol/L (-3-3) FiO2 30% Bedside Troponin I 0.46 ng/ml (<0.08) Test 04/29/17 10:44 Bedside Hemoglobin 15.6 g/dL (14-18) Bedside Hematocrit 46 % (37-52) Bedside Sodium 135 mmol/L (135-145) Bedside Potassium 4.6 mmol/L (3.5-5.0) Bedside Chloride 102 mmol/L (98-110) Bedside Total CO2 24 mmol/L (23-32) Anion Gap 14 mmol/L (6-14) Bedside Blood Urea Nitrogen 21 mg/dL (8-26) Bedside Creatinine 1.2 mg/dL (0.5-1.4) Glucose Level 128 mg/dL (70-99) Bedside Ionized Calcium (Erin) 0.95 mmol/L (1.13-1.32) Laboratory Tests Test 04/29/17 10:00 04/29/17 10:05 04/29/17 10:15 04/29/17 10:37 White Blood Count 5.8 x10^3/uL (4.0-11.0) Red Blood Count 5.42 x10^6/uL (4.30-5.70) Hemoglobin 14.4 g/dL (13.0-17.5) Hematocrit 44.1 % (39.0-53.0) Mean Corpuscular Volume 81 fL (79-100) Mean Corpuscular Hemoglobin 27 pg (25-35) Mean Corpuscular Hemoglobin Concent 33 g/dL (31-37) Red Cell Distribution Width 16.1 % (11.5-14.5) Platelet Count 188 x10^3/uL (140-400) Prothrombin Time 13.5 SEC (11.7-14.0) Prothromb Time International Ratio 1.1 (0.8-1.1) Activated Partial Thromboplast Time 22 SEC (24-38) Sodium Level 136 mmol/L (136-145) Potassium Level 4.9 mmol/L (3.5-5.1) Chloride Level 102 mmol/L (98-107) Carbon Dioxide Level 28 mmol/L (21-32) Anion Gap 6 (6-14) Blood Urea Nitrogen 18 mg/dL (8-26) Creatinine 1.2 mg/dL (0.7-1.3) Estimated GFR (Cockcroft-Gault) 75.0 Glucose Level 109 mg/dL (70-99) Calcium Level 8.8 mg/dL (8.5-10.1) Troponin I Quantitative 1.875 ng/mL (0.000-0.055) Glucose (Fingerstick) 117 mg/dL (70-99) O2 Saturation 92 % (92-99) Arterial Blood pH 7.37 (7.35-7.45) Arterial Blood pCO2 at Patient Temp 48 mmHg (35-46) Arterial Blood pO2 at Patient Temp 71 mmHg (65-108) Arterial Blood HCO3 27 mmol/L (21-28) Arterial Blood Base Excess 1 mmol/L (-3-3) FiO2 30% Bedside Troponin I 0.46 ng/ml (<0.08) Test 04/29/17 10:44 Bedside Hemoglobin 15.6 g/dL (14-18) Bedside Hematocrit 46 % (37-52) Bedside Sodium 135 mmol/L (135-145) Bedside Potassium 4.6 mmol/L (3.5-5.0) Bedside Chloride 102 mmol/L (98-110) Bedside Total CO2 24 mmol/L (23-32) Anion Gap 14 mmol/L (6-14) Bedside Blood Urea Nitrogen 21 mg/dL (8-26) Bedside Creatinine 1.2 mg/dL (0.5-1.4) Glucose Level 128 mg/dL (70-99) Bedside Ionized Calcium (Erin) 0.95 mmol/L (1.13-1.32) Brief Hospital Course Mr. Lo is a 57 old [sex] who presented with [ ]History of Present Illness 57 y.o AA male whom I just dcd 2 days ago for severe ICM with EF 10-15%, was on ASA 81 and plavix 75. As per RN last admit he was self pay so plavix might have been an issue, In any case, he was A and O x 3 moves all 4 ext until 9 AM today at the [employer], sudden dec in [place], slumped down, Went to ER, At ER could not move all 4 ext, Code stroke was cancelled but NEuro Dr. Mullins was consulted and agreed with CTA order - BP was high, ruling out dissection etc. CArds had plans of cardiac cath urgently from ER as we were unsure if this was all cardiac given his signif cardiac hx, BUt at ICU, clearly he can move RT arm spontaneously but the lEFT arm slumps dowm, CAnt speak, wake sup but drowsy, STILL IN THE WINDOW FOR TPA, I did ask to call CODE STROKE. That was called. I did review past records, indeed had some subacute to acute CVA left frontal on 03/22 brain MRI Dw Venita Mendoza of neuro, CI to TPA if recent stroke as high chance of bleeding - Dw DTR and whole ICU TEAM Will order stat MRI, LIpids was just check 2 mos ago, ok CArotids checed 2 mos ago - some plaques but none obstructing,. In the light of clinically new stroke, will re do,. Systolic 160s, WILL ALLOW PERMISSIVE HTN IN THIS CLINICALLY ACUTE CVA I was called in STAT to ICU for the above issues, CC 45 mins cumulative COURSE: STAT MRI AND MRA DONE. SHOWED ACUTE MCA STROKE, AND LEFT ICA OCCLUDED FROM THE SKULL BASE. He did get ASA per rectum. SYstolic BP 160s, HR 90s, sinus, TRAnsfer arranged for possible thrombectomy IR, ACcepted by Dr. Michael SANTAMARIA neuro., SPoke with evaluation assistant. SPoke with adult daycare coordinator and ICU staff. 2 visits in ER Images being clouded, Official MRI read not yet out. CC 76 cumulative Discharge Information Condition at Discharge: Stable Disposition/Orders: D/C to Another Facility Scheduled Amiodarone Hcl (Amiodarone Hcl), 1 TAB PO BID Aspirin (Aspir 81), 1 TAB PO DAILY Clopidogrel Bisulfate (Plavix), 1 TAB PO DAILY, (Reported) Furosemide (Furosemide), 40 MG PO BID94 Isosorbide Mononitrate (Isosorbide Mononitrate Er), 30 MG PO DAILY Lisinopril (Lisinopril), 10 MG PO DAILY Metolazone (Metolazone), 2.5 MG PO DAILY Metoprolol Tartrate (Metoprolol Tartrate), 1 TAB PO BID Potassium Chloride (Klor-Con M20), 20 MEQ PO [id number] Discontinued Medications Atorvastatin Calcium (Lipitor), 1 TAB PO QHS Furosemide (Lasix), 1 TAB PO DAILY Isosorbide Mononitrate (Isosorbide Mononitrate Er), 1 TAB PO DAILY Lisinopril (Lisinopril), 1 TAB PO DAILY BARBARA FERNANDES MD Apr 29, 2017 14:14
--- NOTE | 2017-04-29 14:34 | RAD ---
Magnetic resonance angiography of the head without contrast 04/29/2017 INDICATION: CVA COMPARISON: MRI brain April 29, 2017 TECHNIQUE: [id number] imaging of the [place] was performed without intravenous contrast. Maximum intensity projection images are provided. 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 The right internal carotid artery is mildly irregular at the cavernous segment, likely secondary to atherosclerotic calcification. The right middle cerebral artery and sylvian branches are normal in appearance. The right A1 segment is not identified. Additionally, the right A2 and left anterior cerebral artery are not visualized. Left middle cerebral artery is occluded. No significant collateral vasculature is identified from the right anterior circulation or the left posterior circulation. Left vertebral artery is dominant. Basilar artery is mildly irregular suggestive of atherosclerotic disease. Superior cerebellar arteries are normal in appearance. Bilateral posterior cerebral arteries are normal in caliber. 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 There is occlusion of the left middle cerebral artery and left anterior cerebral artery. Note, the region of diffusion restriction on recent MRI was predominantly limited to the left middle cerebral artery territory. This may suggest collateral flow to parts of the anterior cerebral artery circulation. However, regions of infarct include bilateral inferior frontal lobes which is in the anterior cerebral artery territory. Right A1 segment of the anterior cerebral artery is not visualized and may be hypoplastic. Critical results were discussed with Judy in the ICU at 2:30 PM on 04/29/2017 Electronically signed by: Geena Silva MD (04/29/2017 2:30 PM) [id number]
--- NOTE | 2017-04-29 14:38 | PDOC ---
CARDIO Progress Notes Vitals Vitals Vital Signs Date Time Temp Pulse Resp B/P (MAP) Pulse Ox O2 Delivery O2 Flow Rate FiO2 04/29/17 11:33 104 04/29/17 11:23 91 04/29/17 10:20 171/125 04/29/17 10:15 98.1 16 Room Air 98.1 Weight Weight [ ] Laboratory Labs Laboratory Tests Test 04/29/17 10:00 04/29/17 10:05 04/29/17 10:15 04/29/17 10:37 White Blood Count 5.8 x10^3/uL (4.0-11.0) Red Blood Count 5.42 x10^6/uL (4.30-5.70) Hemoglobin 14.4 g/dL (13.0-17.5) Hematocrit 44.1 % (39.0-53.0) Mean Corpuscular Volume 81 fL (79-100) Mean Corpuscular Hemoglobin 27 pg (25-35) Mean Corpuscular Hemoglobin Concent 33 g/dL (31-37) Red Cell Distribution Width 16.1 % (11.5-14.5) Platelet Count 188 x10^3/uL (140-400) Prothrombin Time 13.5 SEC (11.7-14.0) Prothromb Time International Ratio 1.1 (0.8-1.1) Activated Partial Thromboplast Time 22 SEC (24-38) Sodium Level 136 mmol/L (136-145) Potassium Level 4.9 mmol/L (3.5-5.1) Chloride Level 102 mmol/L (98-107) Carbon Dioxide Level 28 mmol/L (21-32) Anion Gap 6 (6-14) Blood Urea Nitrogen 18 mg/dL (8-26) Creatinine 1.2 mg/dL (0.7-1.3) Estimated GFR (Cockcroft-Gault) 75.0 Glucose Level 109 mg/dL (70-99) Calcium Level 8.8 mg/dL (8.5-10.1) Troponin I Quantitative 1.875 ng/mL (0.000-0.055) IQ-Lzh-Y-Type Natriuretic Peptide 42429 pg/mL (0-124) Glucose (Fingerstick) 117 mg/dL (70-99) O2 Saturation 92 % (92-99) Arterial Blood pH 7.37 (7.35-7.45) Arterial Blood pCO2 at Patient Temp 48 mmHg (35-46) Arterial Blood pO2 at Patient Temp 71 mmHg (65-108) Arterial Blood HCO3 27 mmol/L (21-28) Arterial Blood Base Excess 1 mmol/L (-3-3) FiO2 30% Bedside Troponin I 0.46 ng/ml (<0.08) Test 04/29/17 10:44 Bedside Hemoglobin 15.6 g/dL (14-18) Bedside Hematocrit 46 % (37-52) Bedside Sodium 135 mmol/L (135-145) Bedside Potassium 4.6 mmol/L (3.5-5.0) Bedside Chloride 102 mmol/L (98-110) Bedside Total CO2 24 mmol/L (23-32) Anion Gap 14 mmol/L (6-14) Bedside Blood Urea Nitrogen 21 mg/dL (8-26) Bedside Creatinine 1.2 mg/dL (0.5-1.4) Glucose Level 128 mg/dL (70-99) Bedside Ionized Calcium (Erin) 0.95 mmol/L (1.13-1.32) Physical Exam Heart: S1S2, no thrills, no rubs, other (sinus tachy low 100s) JOE GARCIA APRN Apr 29, 2017 14:38
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
[2017-04-29] MEDS ORDERED: FAMOTIDINE 20 MG/2 ML VIAL IVP SCH (21:00)
== END 2017-04-29 14:20 | disposition short-term general hospital (02) | DRG 64 ==
LOC: ER 09:50 → 1 WEST ICU 11:05
PROVIDERS: ADMIT Internal Medicine; ATTEND Internal Medicine
DX: I63.519 Cerebral infarction due to unspecified occlusion or stenosis of unspecified middle cerebral artery (principal); G93.41 Metabolic encephalopathy; I11.0 Hypertensive heart disease with heart failure; I50.9 Heart failure, unspecified; E78.00 Pure hypercholesterolemia, unspecified; I25.10 Atherosclerotic heart disease of native coronary artery without angina pectoris; F12.90 Cannabis use, unspecified, uncomplicated; R74.8 Abnormal levels of other serum enzymes; J44.9 Chronic obstructive pulmonary disease, unspecified; I25.5 Ischemic cardiomyopathy; Z88.8 Allergy status to other drugs, medicaments and biological substances; Z79.82 Long term (current) use of aspirin; Z82.3 Family history of stroke; Z82.49 Family history of ischemic heart disease and other diseases of the circulatory system; Z86.73 Personal history of transient ischemic attack (TIA), and cerebral infarction without residual deficits; I65.22 Occlusion and stenosis of left carotid artery
CPT/HCPCS: 36415; 36600; 70450; 70544; 70551; 71010; 71275; 74174; 80047; 80048; 82805; 82962; 83880; 84484; 85027; 85610; 85730; 93005; 96365; J1650; J3490; Q9967; 99285-25